=== PATIENT | female | born 1980 | race Caucasian/White ===

== ENCOUNTER → 2022-03-13 | Outpatient (CLI) | payer OTHER, MEDICAID, SELFPAY ==
[2022-03-13 12:17] LABS: Absolute Lymphocyte Count 2.02 X10^3/uL (0.83-4.51); Absolute Neutrophil Count 3.9 X10^3/uL (2.0-7.7); Basophil# 0.03 X10^3/uL; Basophil% 0.4 % (0-1); Eosinophil# 0.21 X10^3/uL; Eosinophils% 3.1 % (0-5); Hematocrit 40.6 % (37-47); Hemoglobin 12.3 g/dL (12.0-15.0); Lymphocyte # 2.02 X10^3/ul (0.83-4.51); Lymphocyte % 29.7 % (19-41); Mean Corp Hgb Conc 30.3 g/dL (32-36); Mean Corpuscular Volume 82.5 fL (81-99); Mean Platelet Vol. 9.3 fl (6.2-12.0); Monocyte# 0.61 X10^3/uL; NRBC Flagged by Analyzer 0 % (0-5); Neutrophil % 57.4 % (47-70); Platelet Count 386 K/mm3 (150-450); RBC Distribution Width CV 15.2 % (11.6-14.6); Red Blood Count 4.92 M/mm3 (4.2-5.4); White Blood Count 6.8 K/mm3 (4.4-11.0)
[2022-03-13 12:31] LABS: Vitamin D,25 Hydroxy 48.9 ng/mL
[2022-03-13 12:59] LABS: Anion Gap 5 (5-15); BUN 9 mg/dL (7-18); BUN/Creat Ratio 12.2 RATIO (10-20); Calcium,Total 9.4 mg/dL (8.5-10.1); Chloride 107 mmol/L (98-107); Cholesterol 129 mg/dL (200); Creatinine, Serum 0.74 mg/dL (0.55-1.02); EST Glomerular Filtration Rate 93 mL/min (>60); Est Glom Filt Rate - Afr Amer 113 mL/min (>60); Free T3 2.3 pg/mL (2.18-3.98); Glucose 84 mg/dL (74-106); High Density Lipoprotein 39 mg/dL; Iron 41 ug/dL (50-170); Iron Binding Capacity,Total 493 ug/dL (250-450); PERCENT IRON SATURATION 8.3 % (15.0-55.0); Potassium 4.7 mmol/L (3.5-5.1); Sodium Level 140 mmol/L (136-145); T4 Free Direct 0.88 ng/dL (0.76-1.46); Thyroid Stim Hormone (TSH) 1.31 uIU/mL (0.358-3.74); Triglycerides 54 mg/dL; Very Low Density Lipoprotein 11 mg/dL (5-40)
== END | disposition home or self-care (01) ==
PROVIDERS: PCP Family Medicine; Referring Provider Family Medicine; Visit Provider Family Medicine
DX: Z00.00 Encounter for general adult medical examination without abnormal findings (principal); E03.9 Hypothyroidism, unspecified; D64.9 Anemia, unspecified
CPT/HCPCS: 36415; 80048; 80061; 82306; 83540; 83550; 84439; 84443; 84481; 85025

== ENCOUNTER → 2022-09-10 | Outpatient (CLI) | payer OTHER, MEDICAID, SELFPAY ==
[2022-09-10 15:28] LABS: Absolute Lymphocyte Count 2.26 X10^3/uL (0.83-4.51); Absolute Neutrophil Count 4.5 X10^3/uL (2.0-7.7); Basophil# 0.01 X10^3/uL; Basophil% 0.1 % (0-1); Hematocrit 43.7 % (37-47); Lymphocyte # 2.26 X10^3/ul (0.83-4.51); Lymphocyte % 30.7 % (19-41); Mean Corpuscular Volume 90.7 fL (81-99); Mean Platelet Vol. 9.3 fl (6.2-12.0); Monocyte# 0.55 X10^3/uL; Monocyte% 7.5 % (0-10); NRBC Flagged by Analyzer 0 % (0-5); Neutrophil % 61.3 % (47-70); Platelet Count 338 K/mm3 (150-450); RBC Distribution Width CV 13.2 % (11.6-14.6); RBC Distribution Width SD 43.8 fl (35.1-43.9); Red Blood Count 4.82 M/mm3 (4.2-5.4); White Blood Count 7.4 K/mm3 (4.4-11.0)
[2022-09-10 15:55] LABS: Vitamin B12 735 pg/mL (211-911)
[2022-09-10 16:13] LABS: Ferritin 9 ng/mL (8-252); Free T3 2.1 pg/mL (2.18-3.98); T4 Free Direct 1.49 ng/dL (0.76-1.46); Thyroid Stim Hormone (TSH) 0.87 uIU/mL (0.358-3.74)
== END | disposition home or self-care (01) ==
LOC: MTLAB 13:56
PROVIDERS: Internal Medicine Endocrinology, Diabetes & Metabolism; PCP Family Medicine; Referring Provider Family Medicine; Visit Provider Family Medicine
DX: E03.9 Hypothyroidism, unspecified (principal); E11.9 Type 2 diabetes mellitus without complications; K90.9 Intestinal malabsorption, unspecified
CPT/HCPCS: 36415; 82607; 82728; 84439; 84443; 84481; 85025

== ENCOUNTER → 2023-04-06 | Outpatient (CLI) | payer OTHER, SELFPAY | END | disposition home or self-care (01) | PROVIDERS: PCP Family Medicine; Visit Provider Family Medicine | DX: N39.0 Urinary tract infection, site not specified (principal) | CPT/HCPCS: 87077; 87086; 87088; 87186 ==

== ENCOUNTER → 2023-07-12 | Outpatient (CLI) | payer OTHER, SELFPAY ==
--- NOTE | 2023-07-12 16:32 | US_ITS ---
STUDY: THYROID ULTRASOUND REASON FOR EXAM: Female, 43 years old. follow up ng TECHNIQUE: Ultrasound evaluation of the thyroid was performed with real-time and static swain-scale imaging. COMPARISON: None. FINDINGS: RIGHT LOBE: The right lobe of the thyroid gland measures 4.3 x 1.4 x 1.0 cm. There is a heterogeneous echotexture. Nodule 1:6 x 4 x 7 mm solid hypoechoic wider than tall smoothly marginated nodule with no echogenic foci (TR 4) in the inferior right lobe consistent with an adenoma. LEFT LOBE: The left lobe of the thyroid gland measures 3.9 x 1.4 x 0.9 cm. There is a heterogeneous echotexture. There are no demonstrated solid, cystic or complex lesions. ISTHMUS: The isthmus measures 2 mm thick . The regional lymph nodes are normal. US/Thyroid IMPRESSION: Thyroiditis with a small adenoma in the right lobe. Electronically Signed: Alejo Sheets MD at 22:34 EST ,
--- OUTSIDE RECORDS SUMMARY | 2023-07-12 16:52 | XMS RPT_ITS | CCD ---
Author Name Unknown Address [address] [place] [address] Organization [facility] Care Team Providers Care Drum Sander Name Role Phone BREANNA HINES Unavailable Unavailable SWETA CHAPMAN Unavailable Unavailable Breanna Hines Primary Care Provider DR BREANNA HINES DO Primary Care Physician Breanna Hines DO Primary Care Provider [phone] Breanna Hines DO Primary Care Provider Breanna Hines Primary Care Provider Breanna Hines Primary Care Provider LIZZIE ESPINOZA Attending Unavailable LIZZIE ESPINOZA Referring Unavailable BREANNA HINES Primary Care Unavailable LIZZIE ESPINOZA Attending Unavailable ALEXIS, LIZZIE Referring Unavailable BREANNA HINES Primary Care Unavailable BREANNA HINES Primary Care Unavailable LIZZIE ESPINOZA Attending Unavailable ALEXIS, LIZZIE Attending Unavailable ALEXIS, LIZZIE Referring Unavailable BREANNA HINES Primary Care Unavailable Breanna Hines Primary Care Provider Thomas Lamb MD Primary Care Provider FAHEEM VENEGAS-JEFFREY GORMAN Attending VAHID Lake MD Attending Unavail able UNKNOWN, PCP Primary Care Unavailable MD CASSIUS MALAGON Attending Adriana mitchell Unknown, Referring Provider Unavailable Rosalbav Thomas Broussard MD Primary Care Provider DIANDRA GRIFFITH Attending Unavailable THOMAS LAMB Primary Care Unavailable DIANDRA GRIFFITH Referring Unavailable DIANDRA GRIFFITH Attending Unavailable THOMAS LAMB Primary Care Unavailable Allergies Allergy Classification Reported Allergen(s) Allergy Type Date of Onset Reaction(s) Facility (20 sources) Albuterol; Translations: [ALBUTEROL] Drug Allergy 6 Rash [facility] Repository (20 sources) Ciprofloxacin; Translations: [CIPROFLOXACIN] Drug Allergy 7 Other (See Comments), Other: See Comments, Rash, Other [facility] [place], [place] Medications Current Medications Medication Drug Class(es) Dates Sig (Normalized) Sig (Original) atomoxetine 40 mg oral capsule (4 sources) Norepinephrine Reuptake Inhibitor Start: 10-30-2022 End: 10-30-2023 take 1 capsule by mouth once daily atomoxetine (Strattera) 40 MG capsule Take 1 capsule (40 mg) by mouth daily. Swallow capsule whole; do not open. If opened accidentally, do not touch eyes; wash hands immediately (product is an eye irritant). 30 capsule 0 10/30/2022 10/30/2023 Active azelastine hydrochloride 0.137 mg/actuat metered dose nasal spray (4 sources) Histamine-1 Receptor Antagonist Start: 12-04-2021 take 2 spray(s) nasal route twice daily azelastine (ASTELIN) 0.1 % nasal spray 2 sprays by Nasal route 2 times daily Use in each nostril as directed 120 mL 1 12/04/2021 Active Completed/Discontinued Medications Medication Drug Class(es) Dates Sig (Normalized) Sig (Original) amphetamine aspartate 2.5 mg / amphetamine sulfate 2.5 mg / dextroamphetamine saccharate 2.5 mg / dextroamphetamine sulfate 2.5 mg oral tablet (6 sources) Central Nervous System Stimulant Start: 02-06-2022 dextroamphetamin e-amphetamine (ADDERALL) 10 mg tablet Take 10 mg by mouth. 0 02/06/2022 Active Problems Active Problems Problem Classification Problem Date Documented Da te Episodic/Chronic Abdominal pain (2 sources) Upper abdominal pain; Translations: [Right upper quadrant pain] Episodic Anxiety disorders (20 sources) Generalized anxiety disorder; Translations: [Posttraumatic stress disorder] Onset: 10-10-2018 10-10-2018 Chronic Biliary tract disease (3 sources) Biliary calculus 08-08-2020 Episodic Headache; including migraine (19 sources) Migraine with aura; Translations: [Migraine with aura, not intractable, without status migrainosus] Onset: 02-04-2015 02-04-2015 Chronic Mood disorders (20 sources) Recurrent major depressive episodes, moderate ; Translations: [Major depressive disorder, recurrent, moderate] Onset: 10-10-2018 10-10-2018 Chronic Nutritional deficiencies (1 source) Vitamin D deficiency; Translations: [Vitamin D deficiency, unspecified] Chronic Other gastrointestinal disorders (10 sources) Irritable bowel syndrome; Translations: [Irritable bowel syndrome without diarrhea] Onset: 02-04-2015 02-04-2015 Chronic Other gastrointestinal disorders (10 sources) Intestinal malabsorption; Translations: [Intestinal malabsorption, unspecified] Onset: 12-30-2017 12-30-2017 Chronic Other gastrointestinal disorders (1 source) Dysphagia; Translations: [Dysphagia, unspecified type] Episodic Other gastrointestinal disorders (2 sources) History of bariatric surgical procedure; Translations: [Bariatric surgery status] Episodic Other infections; including parasitic (1 source) History of Helicobacter pylori infection; Translations: [Personal history of other infectious and parasitic diseases] Episodic Other non-traumatic joint disorders (1 source) Joint swelling; Translations: [Effusion, unspecified joint] Episodic Other nutritional; endocrine; and metabolic disorders (10 sources) Obesity; Translations: [Obesity, unspecified] Onset: 01-31-2015 01-31-2015 Chronic Other nutritional; endocrine; and metabolic disorders (7 sources) Body mass index 40+ - severely obese; Translations: [Body mass index (BMI) 40.0-44.9, adult] Onset: 12-29-2019 12-29-2019 Chronic Other nutritional; endocrine; and metabolic disorders (1 source) Weight gain; Translations: [Abnormal weight gain] Episodic Other and delivery including normal (1 source) 07-15-2021 Episodic Past or Other Problems Problem Classification Problem Date Documented Da te Episodic/Chronic Deficiency and other anemia (10 sources) Anemia; Translations: [Anemia, unspecified] Onset: 01-31-2015 01-31-2015 Episodic Diseases of mouth; excluding dental (1 source) Geographic tongue Onset: 12-09-2017 Episodic Nutritional deficiencies (10 sources) Deficiency of multiple nutrient elements; Translations: [Deficiency of multiple nutrient elements] Onset: 12-30-2017 12-30-2017 Episodic Other complications of (4 sources) Multigravida of advanced maternal age; Translations: [Supervision of elderly multigravida, unspecified trimester] Onset: 10-04-2020 04-22-2022 Episodic Results Test Name Value Interpretation Reference Range Facil ity Vital Signs Date Time Vital Sign Value Performing Clinician Delbert lity 10-30-2022 14:52-0400 Body height 165.1 cm Diandra Griffith APRN - ADAPTIVE PHYSICAL EDUCATION SPECIALIST Work Phone: [facility] 10-30-2022 14:52-0400 Body mass index (BMI) [Ratio] 35.78 kg/m2 Diandra Griffith CELL EFFICIENCY SUPERVISOR - ADAPTIVE PHYSICAL EDUCATION SPECIALIST Work Phone: [facility] 10-30-2022 14:52-0400 Body temperature 97.9 [degF] Diandra Griffith CELL EFFICIENCY SUPERVISOR - ADAPTIVE PHYSICAL EDUCATION SPECIALIST Work Phone: [facility] 10-30-2022 14:52-0400 Body weight 97.52 kg Diandra Griffith CELL EFFICIENCY SUPERVISOR - ADAPTIVE PHYSICAL EDUCATION SPECIALIST Work Phone: [facility] 10-30-2022 14:52-0400 Diastolic blood pressure 78 mm[Hg] Diandra Griffith APRN - ADAPTIVE PHYSICAL EDUCATION SPECIALIST Work Phone: [facility] 10-30-2022 14:52-0400 Heart rate 106 /min Diandra Griffith APRN - ADAPTIVE PHYSICAL EDUCATION SPECIALIST Work Phone: [facility] 10-30-2022 14:52-0400 Systolic blood pressure 104 mm[Hg] Diandra Griffith APRN - ADAPTIVE PHYSICAL EDUCATION SPECIALIST Work Phone: [facility] 07-15-2021 18:58-0500 Body temperature 98.96 [degF] JENNIE MI DO [facility] 07-15-2021 18:58-0500 Diastolic blood pressure 67 mm[Hg] JENNIE MI DO [facility] 07-15-2021 18:58-0500 Heart rate 62 /min JENNIE MI DO [facility] 07-15-2021 18:58-0500 Respiratory rate 18 /min JENNIE MI DO [facility] 07-15-2021 18:58-0500 Systolic blood pressure 106 mm[Hg] JENNIE MI DO [facility] Encounters Encounter Date Encounter Type Care Provider Facility Start: 01-29-2023 Refill Diandra Trever CELL EFFICIENCY SUPERVISOR - ADAPTIVE PHYSICAL EDUCATION SPECIALIST Work Phone: [facility] Start: 01-22-2023 Telephone encounter Diandra Emeli christiansen CELL EFFICIENCY SUPERVISOR - ADAPTIVE PHYSICAL EDUCATION SPECIALIST Work Phone: [facility] Procedures Date Procedure Procedure Detail Performing Clinician Start: 03-10-2022 Adult depression scr eening assessment Lizzie ARSHAD-C Work Phone: Start: 02-09-2022 Adult depression scr eening assessment Lizzie ARSHAD-C Work Phone: Start: 12-01-2021 Adult depression scr eening assessment Lizzie ARSHAD-C Work Phone: Start: 11-14-2021 Us abdominal real ti me w/image limited Siomara ARSHAD-C Work Phone: Start: 10-28-2021 Mri brain brain stem w/o contrast material Jovany Frank MD Work Phone: Start: 10-23-2021 C-reactive protein Chri yancy Hines DO Work Phone: Start: 10-23-2021 Comprehensive metabo lic panel Breanna Hines DO Work Phone: Start: 08-19-2020 Cholecystectomy JEFFREY MAYEN CELL EFFICIENCY SUPERVISOR-CNM Plan of Treatment Date Care Activity Detail Author Start: 10-27-2032 DTaP/Tdap/Td Vaccines (5 - Td or Tdap) DTaP/Tdap/Td Vaccines (5 - Td or Tdap) [facility] Start: 02-13-2032 Zoster Vaccines (1 of 2) Zoster Vaccines (1 of 2) [facility] Start: 01-03-2031 DTaP/Tdap/Td vaccine (4 - Td or Tdap) DTaP/Tdap/Td vaccine (4 - Td or Tdap) [facility] Start: 03-10-2023 Adult depression screening assessment DEPRESSION SCREENING [facility] Start: 02-26-2023 Influenza vaccination [facility] Start: 02-09-2023 Adult depression screening assessment DEPRESSION SCREENING [facility] Start: 02-03-2023 End: 02-03-2023 Patient encounter procedure [facility] Start: 12-09-2022 CHET, Provider: Elmira Johnson, Status: Pen, Time: 1:00 PM CHET, Provider: Elmira Johnson, Status: Pen, Time: 1:00 PM [id number] Specialty [facility] Work Phone: Start: 12-01-2022 Adult depression screening assessment DEPRESSION SCREENING [facility] Start: 11-25-2022 HIREN, Provider: Cassius Malagon, Status: Pen, Time: 10:30 AM HIREN, Provider: Cassius Malagon, Status: Pen, Time: 10:30 AM [id number] Specialty [facility] Work Phone: Start: 10-23-2022 Creatinine measurement Creatinine [facility] Start: 10-23-2022 Hemoglobin A1c measurement Diabetes: Hemoglobin A1C [facility] Start: 10-23-2022 Potassium [Moles/volume] in Serum or Plasma Potassium [facility] Start: 06-17-2022 End: 06-17-2022 Patient encounter procedure 06/17/2022 Office Visit Endocrinology Bertha Yarbrough MD [address] [facility] [address] [place] [address] Endocrinology [facility] Start: 02-26-2022 Influenza vaccination [facility] Start: 2022 Mammography MAMMOGRAM [facility] Start: 2022 Screening for malignant neoplasm of breast Mammogram [facility] Start: 01-22-2022 Hemoglobin A1c measurement Diabetes: Hemoglobin A1C [facility] Start: 01-19-2022 End: 01-19-2022 Patient encounter procedure 01/19/2022 Office Visit Otolaryngology Mt Chavez MD [address] [place] [address] [facility] Start: 12-04-2021 End: 12-04-2021 Patient encounter procedure 12/04/2021 Office Visit Otolaryngology Mt Chavez MD [address] [place] [address] [facility] Start: 11-03-2021 End: 11-03-2021 Patient encounter procedure 11/03/2021 Office Visit Neurology Diandra Griffith, CELL EFFICIENCY SUPERVISOR - ADAPTIVE PHYSICAL EDUCATION SPECIALIST [address] [place] [address] [facility] [place] Start: 10-28-2021 End: 10-28-2021 Patient encounter procedure 10/28/2021 Appointment MRI [facility] Start: 10-27-2021 End: 10-27-2021 Patient encounter procedure 10/27/2021 Office Visit General Surgery Clem Aleman MD [address] [place], [place] [id number] Gen Surg - [facility] Start: 06-28-2021 DEPRESSION ASSESSMENT DEPRESSION ASSESSMENT [facility] Start: 04-01-2021 COVID-19 Vaccine (3 - Booster for Pfizer series) COVID-19 Vaccine (3 - Booster for Pfizer series) [facility] Start: 12-25-2020 COVID-19 VACCINE (3 - Booster for Pfizer series) COVID-19 VACCINE (3 - Booster for Pfizer series) [facility] Start: 02-02-2020 Creatinine monitoring Creatinine monitoring [facility] [place] , [place] Start: 02-02-2020 Potassium monitoring Potassium monitoring [facility], [place] Start: 10-25-2019 End: 10-25-2019 Office Visit 10/25/2019 Office Visit Endocrinology Billie Adams MD [address] [place] [address] [phone] [facility] [place] Start: 05-17-2019 End: 05-17-2019 Office Visit 05/17/2019 Office Visit General Surgery Cat Poe MD [address] [place] [address] [phone] [facility] Start: 04-21-2019 End: 04-21-2019 Office Visit 04/21/2019 Office Visit Endocrinology Billie Adams MD [address] [facility] [place] [address] [phone] [facility] [place] Start: 04-13-2019 End: 04-13-2019 Office Visit 04/13/2019 Office Visit Weight Management Rose Schaefer MD [address] [place] [address] [phone] [facility] Start: 04-10-2019 End: 04-10-2019 Appointment 04/10/2019 Appointment Radiology [facility] Start: 03-13-2019 End: 03-13-2019 Office Visit 03/13/2019 Office Visit Family Medicine Breanna Hines, DO [address] [place], [place] [id number] [facility] Start: 02-26-2019 Influenza vaccination Flu vaccine (#1) [place], [place] Start: 12-27-2015 Cervical cancer screen Cervical cancer screen [place], [place] Start: 02-13-2012 HPV TESTING HPV TESTING [facility] Start: 02-13-2012 Screening for malignant neoplasm of cervix [facility] Start: 2003 PAP TESTING PAP TESTING [facility] Start: 2003 Screening for malignant neoplasm of cervix Pap smear [facility] Start: 2001 DTaP/Tdap/Td vaccine (1 - Tdap) DTaP/Tdap/Td vaccine (1 - Tdap) [place] Start: 2001 Urine microalbumin profile DTAP,TDAP,TD (1 - Tdap) [facility] Start: 2001 Urine screening for protein Diabetes: Urine Protein Screening [facility] Start: 02-13-2000 HEPATITIS C SCREENING HEPATITIS C SCREENING [facility] Start: 02-13-2000 Hepatitis C screening Hepatitis C Screening [facility] Start: 02-13-2000 HIV SCREENING HIV SCREENING [facility] Start: 1997 HIV screen HIV screen [place], [place] Start: 1997 HIV screening HIV screen [facility] Start: 1994 Adult depression screening assessment DEPRESSION SCREENING [facility] Start: 1994 Depression Monitoring Depression Monitoring [facility] Start: 1994 Depresssion Monitoring Depresssion Monitoring [facility] Start: 02-13-1992 Diabetic foot examination Diabetes: Foot Exam [facility] Start: 02-13-1992 Glaucoma screening Diabetes: Retinopathy Screening [facility] Start: 02-13-1992 Preventive dental service Diabetes: Dental Exam [facility] Start: 1983 MMR Vaccines (1 of 1 - Standard series) MMR Vaccines (1 of 1 - Standard series) [facility] Start: 1983 Varicella vaccination Varicella Vaccines (1 of 2 - 2-dose childhood series) [facility] Start: 1982 HEPATITIS B (1 of 3 - 3-dose series) HEPATITIS B (1 of 3 - 3-dose series) [facility] Start: 1982 Hepatitis B Vaccines (1 of 3 - 3-dose series) Hepatitis B Vaccines (1 of 3 - 3-dose series) [facility] Start: 1982 HIV screening HIV Screening [facility] Start: 1982 Lipid panel Lipid Panel [facility] Start: 1982 Thyroid stimulating hormone measurement TSH Level [facility] End: 12-16-2021 CT Sinus WO Contrast Limited [facility] Work Phone: Immunizations Immunization Date Immunization Notes Care Provider Fa cili 01-03-2021 tetanus toxoid, redu benji diphtheria toxoid, and acellular pertussis vaccine, adsorbed; Translations: [Boostrix (Tdap)] JEFFREY MAYEN CELL EFFICIENCY SUPERVISOR-CNM [facility] 10-30-2020 Pfizer SARS-CoV-2 Vaccination Diandra Griffith CELL EFFICIENCY SUPERVISOR - ADAPTIVE PHYSICAL EDUCATION SPECIALIST Work Phone: [facility] 10-09-2020 Pfizer SARS-CoV-2 Vaccination Diandra Griffith CELL EFFICIENCY SUPERVISOR - ADAPTIVE PHYSICAL EDUCATION SPECIALIST Work Phone: [facility] 04-10-2020 tetanus and diphther ia toxoids, adsorbed, preservative free, for adult use (2 Lf of tetanus toxoid and 2 Lf of diphtheria toxoid) Breanna Hines DO Work Phone: [facility] Work Phone: 05-10-2019 influenza virus vaccine, unspecified formulation Breanna Hines DO Work Phone: [facility] 07-15-2016 diphtheria, tetanus toxoids and acellular pertussis vaccine, 5 pertussis antigens Breanna Hines DO Work Phone: [facility] Work Phone: 06-23-2016 influenza, injectabl e, quadrivalent, contains preservative Siomara [place] Payers Date Payer Category Payer Private Health Insurance [id number] 2022 Unknown [id number] 2021 Private Health Insurance [id number] 2021 Private Health Insurance CIGNA CIGNA OAP [id number] 2021-Present [phone] [address] [place] [address] Open Access [id number] 2021 Private Health Insurance [id number] 2021 Medicaid [employer] MEDICA[employer] [facility] MEDICAID [id number] 2021-Present [phone] [address] [place] [address] Medicaid [id number] 2021 Medicaid [id number] 2020 Medicaid [id number] 2018 Unknown [employer] M [employer] [address] xxxxxxxxxxxx 2018-Present [phone] [address] [place] [address] xxxxxxxxxxxx [id number] 1982 Unknown [id number] 1982 Unknown [id number] 1982 Unknown [id number] 1982 Unknown [id number] Private Health Insurance [id number] Unknown [id number] Unknown [employer] Social History Date Type Detail Facility Start: 07-02-2017 End: 02-23-2019 Tobacco smoking status NHIS Never smoker [place] Start: 02-23-2019 End: 10-30-2022 Alcohol intake Yes [place] Start: 10-10-2018 History SDOH Physica l Activity DPW 0 [place] Start: 10-10-2018 History SDOH Transpo rt Med 2 [place] Start: 01-31-2015 End: 12-08-2017 Alcohol Comment socially [place] Start: 1982 Sex Assigned At Not on file [place], [place] Start: 1982 Sex Assigned At Female A [facility] Start: 01-01-2015 End: 07-02-2017 Tobacco use and exposure Smokeless tobacco non-user [facility] Work Phone: Start: 10-08-2021 End: 10-30-2022 Alcohol intake Current drinker of alcohol (finding) [facility] Work Phone: Start: 10-08-2021 End: 10-30-2022 Alcohol intake [facility] Work Phone: Start: 09-28-2021 End: 10-30-2022 Exposure to SARS-CoV-2 (event) Not sure [facility] Start: 11-03-2021 End: 04-23-2022 Alcohol intake Ex-drinker (finding) [facility] Start: 10-26-2021 End: 11-05-2021 Exposure to SARS-CoV-2 (event) Unable to assess [facility] Work Phone: Start: 04-16-2022 Gender identity Identifies as female gender (finding) [facility] Start: 04-16-2022 Sexual orientation Bisexual (finding ) [facility] Goals Date Patient Goal Desired Activity /State Clinical Notes 04-10-2020 to 02-01-2023 Telephone Encounter - RUBI Sagastume CNP - 02/01/2023 8:12 AM EDTTelephone Encounter - RUBI Sagastume CNP - 02/01/2023 8:12 AM DASHTGabi Del Real RN - 10/30/2022 2:30 PM EDT Note Date & Type Note Facility 02-01-2023 Telephone encounter Note Requested Prescriptions Signed Prescriptions Disp Refills Rimegepant Sulfate (Nurtec) 75 MG tablet dispersible 8 tablet 5 Sig: TAKE 75 MG BY MOUTH ONCE DAILY NEEDED (MIGRAINE) Authorizing Provider: DIANDRA GRIFFITH erenumab (Aimovig) 140 MG/ML injection 1 mL 5 Sig: INJECT 140 MG INTO THE SKIN EVERY 30 DAYS Authorizing Provider: DIANDRA GRIFFITH [facility] 02-01-2023 Miscellaneous Notes Requested Prescriptions Signed Prescriptions Disp Refills Rimegepant Sulfate (Nurtec) 75 MG tablet dispersible 8 tablet 5 Sig: TAKE 75 MG BY MOUTH ONCE DAILY NEEDED (MIGRAINE) Authorizing Provider: DIANDRA GRIFFITH erenumab (Aimovig) 140 MG/ML injection 1 mL 5 Sig: INJECT 140 MG INTO THE SKIN EVERY 30 DAYS Authorizing Provider: DIANDRA GRIFFITH documented in this encounter [facility] 01-22-2023 Telephone encounter Note Noted. [facility] 01-22-2023 Miscellaneous Notes Noted. Images from the original note were not included. The patient has upcoming Botox appt on 02/03/2023. The Botox is approved under the patient's Medical Benefit and should be done as Buy and Bill. See Media tab for Approval letter. BOTOX IS BUY AND BILL!!! Medication: Botox # of Unit to be Administered: 200 Prior Authorization: Approved (medical benefit) [place] reference #: [id number] Approval dates: 02/03/2023 - 02/04/2024 Number of Units Approved: 800 documented in this encounter [facility] 01-22-2023 Telephone encounter Note Images from the original note were not included. The patient has upcoming Botox appt on 02/03/2023. The Botox is approved under the patient's Medical Benefit and should be done as Buy and Bill. See Media tab for Approval letter. BOTOX IS BUY AND BILL!!! Medication: Botox # of Unit to be Administered: 200 Prior Authorization: Approved (medical benefit) [place] reference #: [id number] Approval dates: 02/03/2023 - 02/04/2024 Number of Units Approved: 800 [facility] 12-09-2022 Chief complaint Narrative - Reported An interactive audio and video telecommunication system which permits real time communications between the patient (at the originating site) and provider (at the distant site) was utilized to provide this telehealth service.Verbal consent was requested and obtained from ELINA LOWERY on this date, 12/09/2022 01:00 PM , for a telehealth visit.obesitynutrition follow-up pre-op [facility] Work Phone: 11-04-2022 Chief complaint Narrative - Reported An interactive audio and video telecommunication system which permits real time communications between the patient (at the originating site) and provider (at the distant site) was utilized to provide this telehealth service.Verbal consent was requested and obtained from ELINA LOWERY on this date, 11/04/2022 09:00 AM , for a telehealth visit.obesityinitial nutrition evaluation [facility] Work Phone: 11-04-2022 Note Chief Complaint An interactive audio and video telecommunication system which permits real time communications between the patient (at the originating site) and provider (at the distant site) was utilized to provide this telehealth service. Verbal consent was requested and obtained from ELINA LOWERY on this date, 11/04/2022 09:00 AM , for a telehealth visit. obesity initial nutrition evaluation Provider Impressions Surgeon: Manas Patient is considering: revision surgery/gastric bypass ASSESSMENT: Current weight in pounds: 218.0 Ht: 64 in BMI: 37.2 Initial start weight in pounds: 218.0 Pre-Op Excess Body Weight (EBW) in pounds: 73.0 Target Post-Op weight goal in pounds: 159.6 -174.2 Food allergies/intolerances: no Chewing/Swallowing/Dentition: no Nausea / Vomiting / Hx Gastroparesis: acid reflux Diarrhea/ Constipation: no Exercise level: cardio and resistance 3x/wk for 45 min. Smoking/Tobacco use: no Vitamins/Minerals supplements: 2 [place] MVI, B12 and iron Medications: see list Past diet attempts: WW, Lenore, low carb, had gastric bypass 14 years ago at [facility] Hours of sleep/night: 6-7 24 HOUR RECALL/DIET HISTORY: Breakfast: skipped Snack: banana Lunch: beef angely with cheese no bun, mustard and pickles Snack: cashews Dinner: white rice with broccoli and cheese Snack: no Beverages: water, unsweetened tea, coffee with cream, diet pop Alcohol: no Person responsible for cooking AND shopping? self How often do you eat sweet snacks? 3x/wk How often do you eat savory snacks? daily How often do you eat out? 1-2x/wk Do you feel overly stuffed? oc,casionally Binge Eating? no Night Eating? no Emotional Eating? yes, stress and emotional eating (working with a therapist) READINESS TO LEARN: Motivation to learn: Interested Understanding of instruction: Good Anticipated Compliance: Good Family Support: spouse Educational Materials Provided: Pre-op Diet and sample menus Nutrition Guidelines for Gastric Bypass Schedules for MSWL class and support group Calorie meal plan Goals sheet This appt was conducted via phone d/t COVID 19 precautions. Nutrition assessment completed today. Patient will schedule for video education class on to discuss the 2 week pre-op diet, post-op protein and fluid goals, vitamin and mineral supplementation, exercise goals, and post-op diet progression at later date. Patient is seeking revision surgery/gastric bypass Her weight has been a struggle since childhood. Has a history of PCOS and type 2 diabetes. Considers stress eating and carbs her dietary obstacles. She has tried numerous weight loss approaches and has had limited success. She had gastric bypass surgery about 14 years ago at [facility] and starting gaining some weight back. Lost over 45 pounds since starting on [facility] 7 months ago. Goal for surgery is to lower weight and improve stomach comfort as well as for overall health. Instructed patient on a 1400 calorie meal plan and to measure and record intake daily. Advised patient to start following meal plan and eat 3 meals daily. Reviewed post-op behaviors to start practicing. Set goal to exercise for 30 minutes 3 times weekly and a increase to 60 minutes 5 times weekly. Recommend that patient follow up in 1 month to assess progress. Patient was receptive to nutritional recommendations, asked numerous questions, and verbalized understanding of the weight loss surgery diet. Patient expressed understanding about the importance of strict dietary compliance post-surgery to avoid nutritional deficiencies and achieve optimal weight loss and verbalized intent to follow dietary recommendations. Malnutrition Screening: Significant unintentional weight loss? n/a Eating less than 75% of usual intake for more than 2 weeks? n/a Nutrition Diagnosis: 1. Overweight/obesity related to excess energy intake as evidenced by BMI = 40 kg/m2. 2. Food- and nutrition-related knowledge deficit related to lack of prior exposure to surgical weight loss information as evidenced by pt new to surgical program. Nutrition Interventions: 1. Modify type and amount of food and nutrients within meals and snacks. 2. Comprehensive Nutrition Education Recommendations: 1. Begin following your meal plan. Measure and record intake daily. 2. Structure meal patterns, eating three meals and 1-2 snacks per day. 3. Have a good source of protein at every meal AND snack. Aim for 60-70 grams/day. 4. Drink 64 oz of calorie-free, caffeine-free, and non-carbonated beverages. 5. Practice no drinking 30 minutes before meals, nothing with meals and wait 30 minutes after meals to drink again. Make meals last 30 minutes-chew thoroughly. 6. Limit or omit eating out/sweets/savory snacks to 1-2 times per week. 7. Begin daily multivitamin. [employer] Complete has everything you need. 8. Increase physical activity by 10-15 minutes as tolerated to an end goal of 60 minutes 5 x per week. Consiste (more content not included)... [facility] 10-30-2022 Note DEPARTMENT OF NEUROL OGY BOTOX PROCEDURE NOTE FOR HEADACHE Date: 10/30/22 Patient: Elina Lowery : 1980 Diagnosis: Diagnosis Plan 1. Intractable chronic migraine without aura and without status migrainosus onabotulinumtoxinA (Botox) injection 155 Units Procedure: Botox injections into the scalp and posterior cervical muscles. Prior to procedure risks, benefits, alternatives, and potential side effects were reviewed with patient. Specifically reviewed possible risk of temporary muscle weakness. All questions were answered, patient expressed understanding, verbal consent given for procedure. No numbing spray applied/removed. Botox was injected with the parameters below: With the patient in sitting position, she received Botox injections in the neck and skull muscles. Patient receive the following doses: 1. R Frontalis 10 units 2. L Frontalis 10 units 3. R Sap Hana Developer 10 units 4. L Sap Hana Developer 10 units 5. R Temporalis 10 units 6. L Temporalis 10 units 7. R Occipitalis 10 units 8. L Occipitalis 10 units 9. R Trapezious 22.5 units 10.L Trapezious 22.5 units 11. R Masseter 15 units 12. L Masseter 15 units Total units injected 155 units. Units discarded 45 units. Comments: The patient reports improvement in migraine frequency and severity of at least 70% following Botox injections. The patient states previously having at least 20 migraine days a month. She states she has been seeing a chiropractor to help with her symptoms. The patient also reports TMJ pain today as well. Discussed Botox in the masseter muscles which the patient was open to receiving again today as she felt it was helpful after receiving it during her last visit. The patient states she does not feel vyvanse is working well for her ability to focus. The patient is requesting to try straterra in place of vyvanse. Orders sent to the pharmacy as requested. Patient advised to notify the office if she feels it is effective in order to receive refills. [x] Pt tolerated procedure well. Pt advised to avoid exercise or strenuous physical activity for 24 hours. Post treatment expectations reviewed in detail. RUBI Sagastume CNP 10/30/22 [facility] 10-30-2022 History of Present illness Narrative Administrations This Visit onabotulinumtoxin A (BOTOX) injection 200 Units Admin Date 10/30/2022 Action Given Dose 200 Units Route IntraMUSCular Site Other Administered By Diandra Griffith CNP Ordering Provider: Diandra Griffith CNP ND:[id number] Lot#: [id number] Relay Record Clerk: Allergan Patient Supplied?: No DEPARTMENT OF NEUROLOGY BOTOX PROCEDURE NOTE FOR HEADACHE Date: 10/30/22 Patient: Elina Lowery : 1980 Diagnosis: Diagnosis Plan 1. Intractable chronic migraine without aura and without status migrainosus onabotulinumtoxinA (Botox) injection 155 Units Procedure: Botox injections into the scalp and posterior cervical muscles. Prior to procedure risks, benefits, alternatives, and potential side effects were reviewed with patient. Specifically reviewed possible risk of temporary muscle weakness. All questions were answered, patient expressed understanding, verbal consent given for procedure. No numbing spray applied/removed. Botox was injected with the parameters below: With the patient in sitting position, she received Botox injections in the neck and skull muscles. Patient receive the following doses: 1. R Frontalis 10 units 2. L Frontalis 10 units 3. R Sap Hana Developer 10 units 4. L Sap Hana Developer 10 units 5. R Temporalis 10 units 6. L Temporalis 10 units 7. R Occipitalis 10 units 8. L Occipitalis 10 units 9. R Trapezious 22.5 units 10.L Trapezious 22.5 units 11. R Masseter 15 units 12. L Masseter 15 units Total units injected 155 units. Units discarded 45 units. Comments: The patient reports improvement in migraine frequency and severity of at least 70% following Botox injections. The patient states previously having at least 20 migraine days a month. She states she has been seeing a chiropractor to help with her symptoms. The patient also reports TMJ pain today as well. Discussed Botox in the masseter muscles which the patient was open to receiving again today as she felt it was helpful after receiving it during her last visit. The patient states she does not feel vyvanse is working well for her ability to focus. The patient is requesting to try straterra in place of vyvanse. Orders sent to the pharmacy as requested. Patient advised to notify the office if she feels it is effective in order to receive refills. [x] Pt tolerated procedure well. Pt advised to avoid exercise or strenuous physical activity for 24 hours. Post treatment expectations reviewed in detail. RUBI Sagastume CNP 10/30/22 documented in this encounter [facility] 07-22-2022 Note DEPARTMENT OF NEUROL OGY BOTOX PROCEDURE NOTE FOR HEADACHE Date: 07/22/22 Patient: Elina Lowery : 1980 Diagnosis: Diagnosis Plan 1. Intractable chronic migraine without aura and without status migrainosus Procedure: Botox injections into the scalp and posterior cervical muscles. Prior to procedure risks, benefits, alternatives, and potential side effects were reviewed with patient. Specifically reviewed possible risk of temporary muscle weakness. All questions were answered, patient expressed understanding, verbal consent given for procedure. No numbing spray applied/removed. Botox was injected with the parameters below: With the patient in sitting position, she received Botox injections in the neck and skull muscles. Patient receive the following doses: 1. R Frontalis 10 units 2. L Frontalis 10 units 3. R Sap Hana Developer 10 units 4. L Sap Hana Developer 10 units 5. R Temporalis 15 units 6. L Temporalis 15 units 7. R Occipitalis 10 units 8. L Occipitalis 10 units 9. R Trapezious 22.5 units 10.L Trapezious 22.5 units 11. R Masseter 10 units 12. L Masseter 10 units Total units injected 155 units. Units discarded 45 units. Comments: The patient reports improvement in migraine frequency and severity of at least 70% following Botox injections. The patient states previously having at least 20 migraine days a month. The patient reports an increase in headaches over the last month. She states stress is increased and she is late on Botox. She states she has been seeing a chiropractor to help with her symptoms. The patient also reports TMJ pain today as well. Discussed Botox in the masseter muscles which the patient was open to trying. The patient states she has had COVID twice. She states since COVID she has Phantom smells of cigarette smoke. The patient states it is improved with Aimovig use. She states the phantom smells occur mainly in the evening. The patient states recently the phantom smells have increased. The patient is having more migraine pain which may be causing the symptoms. Discussed changing from Aimovig to Ajovy which the patient was open to trying. The patient states she was prescribed Mounjaro for blood sugar control. She states since starting this medication she does not feel Adderall is as effective in controlling ADHD. The patient states PCP advised her that Mounjaro can sometimes make Adderall less effective. The patient is requesting a prescription for Vyvanse. Prescription for vyvanse 40 mg daily provided in place of Adderall. [x] Pt tolerated procedure well. Pt advised to avoid exercise or strenuous physical activity for 24 hours. Post treatment expectations reviewed in detail. Diandra Griffith APRN - NAKUL 07/22/22 [facility] 04-23-2022 Note HNO ID: [id number] Author: Lizzie Espinoza PA-C Service: ? Author Type: Physician Accuracy Expert Type: Progress Notes Filed: 04/23/2022 4:57 PM Note Text: [facility] PROGRESS NOTE PATIENT: Elina Lowery MRD: [id number] DATE: April 23, 2022 IDENTIFYING INFORMATION: Elina is a 41 year old female with a history of anxiety, depression, PTSD and ADHD who presents for follow-up. Previous notes/chart have been reviewed. Virtual platform used: [employer]. This Visit is being conducted with the use of a HIPPA compliant telecommunication system permitting interactive audio and or video platform. Proper identity, and was established. Verbal consent to engage in and treat was obtained. It required patient-provider interaction for the medical decision making as documented below. CHIEF COMPLAINT: I have been really anxious Interim History: The patient reached out to this provider on 04/02 and requested to increased her Effexor as she had been on the 37.5 mg for about 6 weeks. Effexor XR was adjusted to 75 mg daily and the patient states she started this approximately 3 weeks ago. The patient states her anxiety has been bad and she has been really stressed . Reports her anxiety can come present as anger and irritability. Reports she is dealing with stressors from her mom, and with her children. Reports she cleaned out her mom's house and this caused a lot of stress, anxiety and nightmares. Reports she clenches her jaw more when feeling anxious and this has lead to more TMJ issues and MURPHY. Reports she was in so much pain due to her TMJ that she was in tears. Reports her depression seems okay but notes her MURPHY increase when she is more depressed. Reports she is more focused on her anxiety than her depression. Reports she is taking Adderall 10 mg once daily. Reports her neurologist increased her prescription to BID. Reports she does not take it on days where she is feeling more irritable and anxious as she feels it makes it worse. Reports she does feel it is more difficult to focus when she is more anxious. Reports she would like to maybe try an extended release stimulant but cannot break down capsules and therefore thinks she might need to switch to Vyvanse due to being able to open up the capsule. SUBJECTIVE: Depression: Reports she has been more focused on her anxiety than her depression. Reports sleep disturbance, irritability, low energy, and appetite changes. Anxiety is reported as increased. Reports feeling more anxious, on-edge, irritable, trouble concentrating and restlessness. Reports no panic attacks. Sleep is reported as trash . Reports she has had nightmares about 3 nights this week. Reports she stays up later to have alone time and then her daughter wakes up when she is ready for bed. Reports she is trying to find time for herself earlier in the day. Reports sleeping about 5.5-6 hours per night. Appetite is reported as okay . Reports she has had a lower appetite this past month. Reports a history of emotional overeating but she feels this has tapered off . Racing thoughts: Reports continued racing thoughts. Mood swings: Reports irritability/anger when feeling anxious. Future oriented thinking: (+) Discusses future goals and plans. SI/SH/HI:Denies SI, SH or HI. Denies hallucinations, delusions, and paranoia. Medication side effects: Reports decreased appetite. Compliant with medication regiment. Current Outpatient Medications Medication Sig Dispense Refill busPIRone (BUSPAR) 5 mg tablet Take 1 tablet by mouth twice daily. 60 tablet 0 venlafaxine ER (EFFEXOR XR) 150 mg 24 hr capsule Take 1 capsule by mouth once daily. 30 capsule 0 dextroamphetamine-amphetamine (ADDERALL) 10 mg tablet Take 10 mg by mouth. ferrous sulfate 325 mg (65 mg iron) EC tablet Take 1 tablet by mouth twice daily. ondansetron (ZOFRAN) 4 mg tablet Take by mouth. TAKE 1 TABLET BY MOUTH EVERY 8 HOURS NEEDED FOR NAUSEA (Patient not taking: Reported on 11/03/2021 ) senna-docusate (SENNA-S) 8.6-50 mg per tablet Take 2 tablets by mouth. BD LUER-OLINDA SYRINGE 3 mL 25 x 1 1/2 as directed. ARMOUR THYROID 90 mg topiramate (TOPAMAX) 50 mg tablet Take 50 mg by mouth twice daily. metFORMIN ER (GLUCOPHAGE XR) 750 mg 24 hr tablet polyethylene glycol 3350 (MIRALAX) 17 gram/dose powder Take 17 g by mouth once daily. Dissolve dose in 4 - 8 ounces of liquid and take as directed. [address] (PROTONIX) 40 mg tablet Take 1 tablet by mouth once daily. 30 tablet 2 fluticasone propionate (FLONASE NASAL) Use in the nose. cyanocobalamin 1,000 mcg/mL soln ergocalciferol, vitamin D2, (DRISDOL) 50,000 unit capsule metFORMIN (GLUCOPHAGE) 500 mg tablet No current facility-administered medications for this visit. No significant changes reported in medical history. Past Family and Social History Reviewed. Substance Use H (more content not included)... [facility] 04-23-2022 Instructions Lizzie Espinoza PA-C - 04/23/2022 4:45 PM EDT Images from the original note were not included. Attention Deficit Hyperactivity Disorder (ADHD) in Adults How is ADHD in adults diagnosed? It is not easy for a doctor to diagnose adult attention deficit/hyperactivity disorder (ADHD). Sometimes, an adult will recognize the symptoms of ADHD in himself or herself when a son or daughter is diagnosed. Other times, adults will seek professional help for themselves and find that their depression or anxiety is related to ADHD. In order to be diagnosed with ADHD, an adult must have childhood-onset and persistent, current symptoms. For an accurate diagnosis, the following are recommended: A history of the adult's behavior as a child An interview with the adult's life partner, parent, close friend, or other close associate A physical examination Psychological tests What are symptoms related to adult ADHD? ADHD symptoms continue as problems into adulthood for more than 60 percent of children with ADHD. The following behaviors and problems might stem directly from ADHD, or might be the result of related adjustment difficulties: Chronic lateness and forgetfulness Anxiety Lack of organizational skills Low self-esteem Employment problems Difficulty controlling anger Impulsiveness If these difficulties are not managed appropriately, they can cause emotional, social, occupational, and academic problems in adults. What are types of behavioral treatments for adult ADHD? Adult ADHD might be treated with one or more of the following: Individual cognitive and behavioral therapy to enhance self-esteem Relaxation training and stress management to reduce anxiety and stress Behavioral coaching to teach the person strategies for organizing home and work activities medical review coordinator or mentoring to support better working relationships and improve on-the-job performance Family education and therapy What strategies can help an adult with ADHD succeed in the workplace? Some adults with ADHD have benefited from: Time-management training; Relaxation and stress management training; Occupational therapy to teach strategies for organizing home and work activities; and, medical review coordinator or mentoring to support better working relationships and improve on-the-job performance. What strategies can parents with ADHD use to resolve conflicts with ADHD children? Be aware. Accept the fact that you are angry, frustrated, and fearful. So is your teen--although his bravado may hide it. You can't help your child through tough times if you can't control your emotions. If you can't, seek the help of a doctor or therapist. Be honest and positive. Admit to your child that having ADHD is not easy, that it takes a lot of effort to stay on track. Tell him/her about some of the challenges you have faced, and the ways you have succeeded. Use humor to deflect anxiety. Always reinforce your child's strengths. Practice healthy confrontation. If you are about to lose your temper, use these techniques: Avoid accusation --focus on solutions to the problem and teach your teen to find alternatives that work. Focus on the behavior --make it clear that your son is not the sum of his behaviors, and that he, within reason, can control them. If you or your child starts to shout, break the pattern by speaking softly. Stick to your word. It isn't easy for people with ADHD to remain disciplined enough to mete out consequences. Make this a priority. If you told your son he must be home by 10 or he will lose his car privileges, and he comes home at 11, don't get angry. Take away his car privileges. This may be inconvenient--you may have to drive him to his tutoring sessions--but do it anyway. If you don't, your son will miss out on learning to equate his actions with consequences and on seeing that a person with ADHD can demonstrate responsible behavior. Avoid the guilt trap. You may have challenges like those of your son, but he is his own person. ADD is an explanation of behaviors, not an excuse for them. Your own failures don't mean you shouldn't have reasonable expectations for him. Humor them a little. Parents who have a sense of humor during tense, stressful situations may make their teen feel more accepted, less anxious, and better able to regulate his emotions, say researchers. Accept your imperfections. It is difficult enough to deal with your own ADHD, let alone your teen's. Don't let the perception that you've failed as a parent, because of your son's challenges, affect your interactions with him. You are a role model for your son, imperfections and all. References National [place] of Mental Health. Can Adults Have ADHD? www.nimh.nih.gov Accessed 09/11/2011 Children and Adults with Attention Deficit/Hyperactivity Disorder. Coaching for Adults with ADHD www.efah5rwsa.org Accessed 09/11/2011 [place] [employer]. August 2011 Monitor on Psychology: Bringing life into focus www.apa.org Accessed 09/11/2011 Copyright 0903-6331 [facility]. All rights reserved This information is provided by the [facility] and is not intended to replace the medical advice of your doctor or health care provider. Please consult your health care provider for advice about a specific medical condition. For additional health information, please contact the Center for Consumer Health Information at the [facility] or toll-free extension [phone]. If you prefer, you may visit [email or web address] or [email or web address]. This document was last reviewed on: 2011 index#5197 An Overview of Anxiety Disorders What is an anxiety disorder? Anxiety is a normal human emotion. Many people feel anxious, or nervous, when faced with a problem at work, or before taking a test or making an important decision. Anxiety disorders, however, are different. They can cause such distress that it interferes with a person's ability to lead a normal life. An anxiety disorder is a serious mental illness. People with anxiety disorders respond to certain things or situations with fear and dread, as well as physical signs of anxiety such as a pounding heart and sweating. For people with anxiety disorders, worry and fear are constant and overwhelming, and can be crippling. An anxiety disorder is diagnosed if the person's response is not appropriate for the situation, if the person cannot control the response or if the anxiety interferes with normal functioning. Anxiety disorders can get worse if not treated; however, effective treatments are available. What are the types of anxiety disorders? There are several recognized anxiety disorders, including the following: Panic disorder People with this disorder have feelings of terror that strike suddenly and repeatedly with no warning. Other symptoms of a panic attack include sweating, chest pain, palpitations (unpleasant sensations of irregular heartbeats) and a feeling of choking, which might make the person feel like he or she is having a heart attack or going crazy. Obsessive-compulsive disorder (OCD) People with OCD are plagued by constant thoughts or fears that cause them to perform certain rituals or routines. The disturbing thoughts are called obsessions, and the rituals are called compulsions. An example is a person with an unreasonable fear of germs who constantly washes his or her hands. Post-traumatic stress disorder (PTSD) PTSD is a condition that can develop following a traumatic and/or terrifying event, such as a sexual or physical assault, the unexpected of a loved one, or a natural disaster. People with PTSD often have lasting and frightening thoughts and memories of the event, and tend to be emotionally numb. Social anxiety disorder Also called social phobia, social anxiety disorder involves overwhelming worry and self-consciousness about everyday social situations. The worry often centers on a fear of being judged by others, or behaving in a way that might cause embarrassment or lead to ridicule. Specific phobias A specific phobia is an intense fear of a specific object or situation, such as snakes, heights or flying. The level of fear usually is inappropriate to the situation and might cause the person to avoid common, everyday situations. Generalized anxiety disorder This disorder involves excessive, unrealistic worry and tension, even if there is little or nothing to provoke the anxiety. What are the symptoms of an anxiety disorder? Symptoms vary depending on the type of anxiety disorder, but general symptoms of anxiety include: Feelings of panic, fear and uneasiness Uncontrollable, obsessive thoughts Repeated thoughts or flashbacks of traumatic experiences Nightmares Ritualistic behaviors, such as repeated hand washing Problems sleeping Cold or sweaty hands Shortness of breath Palpitations An inability to be still and calm Dry mouth Numbness or tingling in the hands or feet Nausea Muscle tension What causes anxiety disorders? The exact cause of anxiety disorders is not known; but anxiety disorders--like other forms of mental illness--are not the result of personal weakness, a character flaw or poor upbringing. As scientists continue their research on mental illness, it is becoming clear that many of these disorders are caused by a combination of factors, including biology and environmental stresses. Like certain illnesses, such as diabetes, anxiety disorders might be caused by chemical imbalances in the body. Studies have shown that severe or long-lasting stress can change the balance of chemicals in the brain that control mood. Studies also have shown that anxiety disorders run in families, which means that they can be inherited from one or both parents, like hair or eye color. In addition, certain environmental factors--such as a trauma or significant event--might trigger an anxiety disorder in people who have an inherited susceptibility to developing the disorder. How common are anxiety disorders? Anxiety disorders affect about 40 million adult Americans.They are the most common mental illnesses in the [place] Most anxiety disorders begin in childhood, adolescence and early adulthood. They occur more often in women than in men. How are anxiety disorders diagnosed? If symptoms are present, the doctor will begin an evaluation by performing a complete medical history and physical examination. Although there are no laboratory tests to specifically diagnose anxiety disorders, the doctor might use various diagnostic tests to rule out physical illness as the cause of the symptoms. If no physical illness is found, the person might be referred to a psychiatrist or psychologist, mental health professionals who are specially trained to diagnose and treat mental illnesses. Psychiatrists and psychologists use specially designed interview and assessment tools to evaluate a person for an anxiety disorder. The doctor bases his or her diagnosis on the patient's report of the intensity and duration of symptoms--including any problems with daily functioning caused by the symptoms--and the doctor's observation of the patient's attitude and behavior. The doctor then determines if the patient's symptoms and degree of dysfunction indicate a specific anxiety disorder. The standard reference manual used for the diagnosis of recognized mental illnesses in the [place] is the Diagnostic and Statistical Manual of Mental Disorders (DSM-5), published by the [place] [employer]. How are anxiety disorders treated? Anxiety disorders are real disorders that require treatment. Recovery is not simply a matter of will and self-discipline. Fortunately, much progress has been made in the last two decades in the treatment of people with mental illnesses. Although the exact treatment approach depends on the type of disorder, one or a combination of the following therapies might be used for most anxiety disorders: Medication Medicines used to reduce the symptoms of anxiety disorders include antidepressants and anxiety-reducing medications. Psychotherapy Psychotherapy (a type of counseling) addresses the emotional response to mental illness. It is a process in which trained mental health professionals help people by talking through strategies for understanding and dealing with their disorder. Cognitive-behavioral therapy People suffering from anxiety disorders often participate in this type of therapy in which the person learns to recognize and change thought patterns and behaviors that lead to troublesome feelings. What is the outlook for people with anxiety disorders? Early diagnosis and treatment can limit the problems caused by an anxiety disorder and improve the outlook. Unfortunately, many anxiety disorders are not recognized and, as a result, not treated. Can anxiety disorders be prevented? Anxiety disorders cannot be prevented; however, there are some things you can do to control or decrease symptoms: Stop or reduce your consumption of products that contain caffeine, such as coffee, tea, cola and chocolate. Ask your doctor or pharmacist before taking any hqrm-zpu-[id number] medicines or herbal remedies. Many contain chemicals that can increase anxiety symptoms. Exercise daily and eat a healthy, balanced diet. Seek counseling and support after a traumatic or disturbing experience. References [employer] [employer]. Anxiety Accessed 03/29/2014. [place] [employer]. DSM Accessed 03/29/2014. Copyright 9163-7358 The [facility]. All rights reserved This information is provided by the [facility] and is not intended to replace the medical advice of your doctor or health care provider. Please consult your health care provider for advice about a specific medical condition. For additional health information, please contact the Center for Consumer Health Information at the [facility] or toll-free extension [phone]. If you prefer, you may visit [email or web address] or [email or web address]. This document was last reviewed on: 2017 index#1036 Depression Overview What is depression? Nearly everyone has felt depressed, sad, or blue at one time or another. A depressed mood is a normal reaction to loss, life's struggles, or injured self-esteem. Sometimes, however, depression becomes intense, lasts for long periods, and prevents a person from leading a normal life. If left untreated, depression can get worse, sometimes lasting for years. It can even result in suicide. It is important to recognize the signs of depression and seek help if you see signs of depression in you or a loved one. It is important to know that depression CAN be treated successfully. What are the symptoms of depression? The major symptoms of depression include the following: Feeling extremely sad, anxious, or empty Feeling hopeless Feeling worthless Sleeping too much or too little Loss of enjoyment from things that were once pleasurable Loss of energy Difficulty concentrating, thinking, or making decisions Changes in appetite that lead to weight loss or gain Uncontrollable crying Headache Stomach ache Digestive problems Problems with sexual function Thoughts of or suicide Attempting suicide If you or someone you know is demonstrating any of the following warning signs, contact a primary care doctor, a mental health professional, or a community mental health center. If you feel unsafe, go to the nearest emergency room for evaluation and treatment. What causes depression? Depression may result from various factors in a person's life, including: High levels of stress Life transitions Loss Physical illness Family history of depression Imbalances in the chemicals that the body uses to control mood Certain medicines Lack of social support Lack of good coping skills History of traumatic experiences What are the types of depression? Major depressive disorder (or major depression): A person with this type of depression feels a profound and constant sense of hopelessness and despair. The symptoms of major depression interfere with the person's ability to work, sleep, study, eat, and enjoy themselves, even activities which had previously been pleasurable. This disabling type of depression may occur only once in a lifetime, or more commonly, occurs several times in a lifetime. Minor depression: A person with this type of depression has symptoms for longer than two weeks at a time, but does not meet the criteria for major depression. Dysthymic disorder (or dysthymia or chronic depression): In dysthymia, the main symptom is a low mood on most days for a long period of time. Other depression symptoms may be present, but are not as severe as in major depression. How is depression diagnosed? Your health care provider will ask you to describe your symptoms and medical history. He or she likely will ask if you or anyone in your family has had depression or other mental health problems. You also may need to complete a depression screening questionnaire. Symptoms of depression sometimes are caused by a physical disorder or illness. Your health care provider also may perform a physical exam or laboratory tests to determine if there is a physical cause for the depression. How is depression treated? Treatment recommendations typically depend on the severity and nature of the depression. Treatment interventions often involve antidepressant medication, psychotherapy, or a combination of these interventions. Can depression be prevented? Some individuals who have had an episode of depression are prone to have another one. The best way to prevent another episode is to be aware of the triggers of depression, know your own symptoms, and seek help early if you need it. Why seek help if I have coped with depression before? You may have recognized periods of depression in your life. Perhaps these periods lasted for several months and you learned to cope. But early treatment is important because: Without treatment, depression can become worse. Depression can lead to suicide. Without treatment, people who suffer from episodes of depression often do not fully recover. Treatment can prevent depression from coming back. Your depression may be the sign of another illness, which can worsen without treatment. Depression can increase your risk of developing other diseases, including dementia. Where can I learn more? [facility] [address] [place] [address], [address] [place] [address] [email or web address] National Mental Health Association [address] [facility] [place] [address] 1.800.969-[facility] 6642) [email or web address] References PubMed Health. Fact Sheet: Depression Accessed 12/04/2013. National [place] [facility]. Depression Accessed 12/04/2013. [place] [employer]. Depression Accessed 12/04/2013. Copyright 8809-3591 [facility]. All rights reserved This information is provided by the [facility] and is not intended to replace the medical advice of your doctor or health care provider. Please consult your health care provider for advice about a specific medical condition. For additional health information, please contact the Center for Consumer Health Information at the [facility] or toll-free extension [phone]. If you prefer, you may visit [email or web address] or [email or web address]. This document was last reviewed on: 2017 index#2571 Post Traumatic Stress Disorder: Symptoms, Causes, Risks, Treatment and Medications What is post-traumatic stress disorder? Post-traumatic stress disorder (PTSD) is an anxiety disorder that a person can develop after experiencing or witnessing--either directly or indirectly--a traumatic event or life-threatening situation. A traumatic event involves exposure to , threatened , actual or serious injury, or actual or threatened sexual violence. Specific examples include physical assault, combat exposure, and serious accidents. What are the symptoms of post-traumatic stress disorder? People who have PTSD may have the following symptoms: repeated, intrusive memories of the traumatic event a vivid sense that the traumatic event is happening again (also called a flashback ) nightmares about the event intense distress after being reminded of the event physical symptoms of anxiety, such as nervousness, being startled easily, an inability to concentrate, and insomnia persistent negative emotions about the event, such as guilt, shame, fear, or anger avoiding reminders of the traumatic event amnesia for all or part of the event decreased interest in things that were once important feeling hopeless about the future If these symptoms last longer than a month and interfere with the person's social life, work, or relationships, they may represent PTSD. Most symptoms of PTSD usually occur within three months of the traumatic event, but can emerge years later. Not everyone who experiences a traumatic event will have PTSD. Who develops post-traumatic stress disorder? In the [place], approximately 7-8% of the population will develop PTSD at some point in their lives. It is not known why some people suffer from PTSD after a traumatic event and others do not. However, researchers have identified specific factors that increase risk for PTSD: experiencing trauma caused by other people, such as rape or assault; exposure to long-term or repeated traumas; personal history of mental health problems, especially anxiety disorders; lack of support from family and friends after a trauma. What types of treatment are available for post-traumatic stress disorder? There are several different types of treatment for PTSD. There is no one treatment that works for everyone. If you feel that you may have PTSD, talk with your doctor or mental health provider to determine what treatment options are best for you. Cognitive-behavioral treatments, either individually or in a group format, are regarded as the most effective treatment for PTSD: Prolonged exposure: People who have experienced trauma fear and avoid the thoughts, feelings, and situations that remind them of it. The goal of exposure therapy is to eventually have less fear about your memories, and to learn to control your thoughts and feelings about the traumatic event. Prolonged exposure is a specific therapy that includes four components: education about PTSD and treatment; breathing retraining to help manage anxiety; practice with approaching real-life situations that are related to the trauma; and, talking through the trauma experience. Cognitive processing therapy: This therapy helps with managing upsetting thoughts and feelings, and with gaining a better understanding of the trauma and its effects. Therapy steps include: education about PTSD and treatment; monitoring thoughts and feelings, and understanding how the traumatic event altered your views of yourself, others, and the world; developing skills to change dysfunctional thoughts or stuck points ; and, shifting beliefs affected by the trauma, such as safety, trust in yourself and others, and self-esteem. Cognitive-restructuring therapy: This therapy approach helps people identify and transform dysfunctional thought patterns and beliefs related to the trauma experience. The treatment uses daily diaries to track thoughts and feelings. With the help of your doctor, you will learn to replace those thoughts with more accurate and less upsetting thoughts. Your doctor will also teach you ways to cope with feelings such as anger, guilt, and fear. As you learn how to recognize and change your perceptions about the trauma, symptoms often improve. Eye movement desensitization and reprocessing: Eye movement desensitization and reprocessing is a treatment that includes components of exposure and cognitive therapies. The idea is to use the brain s information processing to resolve trauma reactions. Treatment sessions involve thinking about the trauma, identifying negative trauma-related thoughts, generating positive aspects, and engaging in rapid ibss-ug-ozkt eye movements while focusing on the target trauma. Sounds, tapping, and other methods that activate stimulation of both halves of the brain have proven equally effective and are routinely used. Medications for post-traumatic stress disorder A class of antidepressant medications called selective serotonin reuptake inhibitors (SSRIs) has shown benefit in treating PTSD. Some commonly prescribed SSRIs are citalopram (Celexa), fluoxetine (Prozac), paroxetine (Paxil), and sertraline (Zoloft). Zoloft and Paxil have been approved by the Food and Drug Administration (FDA) for the long-term treatment of PTSD. Overall, the evidence of treatment effectiveness suggests that therapy interventions have a greater impact than medications. However, some people may prefer medications, or may benefit from a combination of therapy and medication. Where can I get more information? National Center for PTSD www.nyptsd.va.gov 534.657.7330 e-mail: [facility] http://www.ptsdalliance.org/ National Suicide Prevention Lifeline If you or someone you know is in a crisis and threatening to hurt or kill himself or herself, immediately call --1 or the National Suicide Prevention Lifeline: 048.026.TALK (9475) References: [place] [employer]. PTSD: National Center for PTSD Accessed 09/25/2014. National [place] [facility]. Post-Traumatic Stress Disorder (PTSD) Accessed 09/25/2014. National Registry of Evidence-based Programs and Practices (NREPP). Eye Movement Desensitization and Reprocessing Accessed 09/25/2014. Copyright 4671-3077 [facility]. All rights reserved This information is provided by the [facility] and is not intended to replace the medical advice of your doctor or health care provider. Please consult your health care provider for advice about a specific medical condition. For additional health information, please contact the Center for Consumer Health Information at the [facility] or toll-free extension [phone]. If you prefer, you may visit [email or web address] or [email or web address]. This document was last reviewed on: 2014 index#8845 documented in this encounter [facility] 03-12-2022 Note HNO ID: [id number] Author: Lizzie Espinoza PA-C Service: ? Author Type: Physician Accuracy Expert Type: Progress Notes Filed: 03/12/2022 5:35 PM Note Text: [facility] GENERAL BEH[facility]IORAL MEDICINE PROGRESS NOTE PATIENT: Elina Lowery MRD: [id number] DATE: March 12, 2022 IDENTIFYING INFORMATION: Elina is a 41 year old female with a history of anxiety, depression, PTSD and ADHD who presents for follow-up. Previous notes/chart have been reviewed. Virtual platform used: [employer]. This Visit is being conducted with the use of a HIPPA compliant telecommunication system permitting interactive audio and or video platform. Proper identity, and was established. Verbal consent to engage in and treat was obtained. It required patient-provider interaction for the medical decision making as documented below. CHIEF COMPLAINT: It has been a difficult month Interim History: The patient states she stopped the Zoloft and started the Effexor XR as discussed last visit. The patient messaged this provider on 03/02/22 stating she felt more anxious. The patient states she is doing better since then. The patient states she had to have her mom pink slipped about 3 weeks ago and she has been admitted to [facility] since. Reports it has been a nightmare . Reports she felt as if she was almost having a heart attack almost every day. Reports she felt a huge phillips of all of her childhood trauma and felt angry at herself for caring for her mom when she did not care for her growing up. Reports she thought about not helping her mom but ultimately decided to. The patient states her mom is a hoarder and she had to clean out her house in order for her mom to return home. 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 Reports she almost called the crisis line because of how bad she was feeling. Reports she was feeling emotional distress, having flashbacks, nightmares, and avoidance symptoms. Reports she was triggered when she thought of the smell of her mom's house and wounds. Reports she had thoughts at night about if she made the right choice. The patient states her sleep was disrupted for a few weeks but it has improved. Reports she is still upset with her mom for putting her in this position but she has been doing better . Reports her mood and anxiety feel better . Reports she anticipates feeling worse when her mom is discharged. Reports she is taking Adderall 10 mg as needed as per neurology still. The patient states she is following up with Neurology in a couple weeks regarding her Adderall. Reports improved concentration, ability to complete tasks, forgetfulness, and impulse control. Reports she is not eating as often when bored or stressed. Reports she is spending less. Reports reduced caffeine use to 1 cup per day. Reports she did find a therapist who she had one visit with but she was almost in crisis mode when she met with her. Reports she has another therapy appointment in two weeks. Reports she did find a trauma-based therapy program through that she is interested in and reached out to. The patient states this was not a good month to assess her response to Effexor XR and she prefers to give it more time. SUBJECTIVE: Depression is reported as better than before. Reports several days of depressed mood, irritability, sleep disturbance, anhedonia, guilt, low motivation and low energy. Anxiety is reported as increased. Reports feeling more anxious, on-edge, and restless with her current stressors with her mom. Reports times where she is more irritable and feels she has no patience. Reports she felt like she was having a heart attack some days. Reports she feels it has been better the past week or so. Denies panic attacks. Sleep is reported as better. Reports trouble sleeping the first part of the month. Reports she has been falling and staying asleep fine this week. Reports sleeping about 7 hours at night this past week. Appetite is reported as the same. The patient reports she does stress eat less. Racing thoughts: Reports continued racing thoughts. Mood swings: Denies. Future oriented thinking: (+) Discusses future goals and plans. SI/SH/HI:Denies SI, SH or HI. Denies hallucinations, delusions, intrusive thoughts, and paranoia. Medication side effects: Reports none. Compliant with medication regiment. Current Outpatient Medications Medication Sig Dispense Refill dextroamphetamine-amphetamine (ADDERALL) 10 mg tablet Take 10 mg by mouth. venlafaxine ER (EFFEXOR XR) 37.5 mg 24 hr capsule Take 1 capsule by mouth once daily. 30 capsule 1 ferrous sulfate 325 mg (65 mg iron) EC tablet Take 1 tablet by mouth twice daily. ondansetron (ZOFRAN) 4 mg tablet Take by mouth. TAKE 1 TABLET BY MOUTH EVERY 8 HOURS NEEDED FOR NAUSEA (Patient not taking: Reported on 11/03/2021 ) senna-docusate (SENNA-S) 8.6-50 mg per tablet Take 2 (more content not included)... [facility] 03-12-2022 Instructions Lizzie Espinoza PA-C - 03/12/2022 5:01 PM EDT Images from the original note were not included. Depression Overview What is depression? Nearly everyone has felt depressed, sad, or blue at one time or another. A depressed mood is a normal reaction to loss, life's struggles, or injured self-esteem. Sometimes, however, depression becomes intense, lasts for long periods, and prevents a person from leading a normal life. If left untreated, depression can get worse, sometimes lasting for years. It can even result in suicide. It is important to recognize the signs of depression and seek help if you see signs of depression in you or a loved one. It is important to know that depression CAN be treated successfully. What are the symptoms of depression? The major symptoms of depression include the following: Feeling extremely sad, anxious, or empty Feeling hopeless Feeling worthless Sleeping too much or too little Loss of enjoyment from things that were once pleasurable Loss of energy Difficulty concentrating, thinking, or making decisions Changes in appetite that lead to weight loss or gain Uncontrollable crying Headache Stomach ache Digestive problems Problems with sexual function Thoughts of or suicide Attempting suicide If you or someone you know is demonstrating any of the following warning signs, contact a primary care doctor, a mental health professional, or a community mental health center. If you feel unsafe, go to the nearest emergency room for evaluation and treatment. What causes depression? Depression may result from various factors in a person's life, including: High levels of stress Life transitions Loss Physical illness Family history of depression Imbalances in the chemicals that the body uses to control mood Certain medicines Lack of social support Lack of good coping skills History of traumatic experiences What are the types of depression? Major depressive disorder (or major depression): A person with this type of depression feels a profound and constant sense of hopelessness and despair. The symptoms of major depression interfere with the person's ability to work, sleep, study, eat, and enjoy themselves, even activities which had previously been pleasurable. This disabling type of depression may occur only once in a lifetime, or more commonly, occurs several times in a lifetime. Minor depression: A person with this type of depression has symptoms for longer than two weeks at a time, but does not meet the criteria for major depression. Dysthymic disorder (or dysthymia or chronic depression): In dysthymia, the main symptom is a low mood on most days for a long period of time. Other depression symptoms may be present, but are not as severe as in major depression. How is depression diagnosed? Your health care provider will ask you to describe your symptoms and medical history. He or she likely will ask if you or anyone in your family has had depression or other mental health problems. You also may need to complete a depression screening questionnaire. Symptoms of depression sometimes are caused by a physical disorder or illness. Your health care provider also may perform a physical exam or laboratory tests to determine if there is a physical cause for the depression. How is depression treated? Treatment recommendations typically depend on the severity and nature of the depression. Treatment interventions often involve antidepressant medication, psychotherapy, or a combination of these interventions. Can depression be prevented? Some individuals who have had an episode of depression are prone to have another one. The best way to prevent another episode is to be aware of the triggers of depression, know your own symptoms, and seek help early if you need it. Why seek help if I have coped with depression before? You may have recognized periods of depression in your life. Perhaps these periods lasted for several months and you learned to cope. But early treatment is important because: Without treatment, depression can become worse. Depression can lead to suicide. Without treatment, people who suffer from episodes of depression often do not fully recover. Treatment can prevent depression from coming back. Your depression may be the sign of another illness, which can worsen without treatment. Depression can increase your risk of developing other diseases, including dementia. Where can I learn more? [facility] [address] [place] [address], [address] [place] [address] [email or web address] National Mental Health Association [address] [facility], [address]th [place] [address] 1.210.964-[facility] ([id number]) [email or web address] References PubMed Health. Fact Sheet: Depression Accessed 12/04/2013. National [place] of Mental Health. Depression Accessed 12/04/2013. [place] [employer]. Depression Accessed 12/04/2013. Copyright 9504-1994 The [facility]. All rights reserved This information is provided by the [facility] and is not intended to replace the medical advice of your doctor or health care provider. Please consult your health care provider for advice about a specific medical condition. For additional health information, please contact the [facility] Information at the [facility] or toll-free extension [phone]. If you prefer, you may visit [email or web address] or [email or web address]. This document was last reviewed on: 2017 index#1417 An Overview of Anxiety Disorders What is an anxiety disorder? Anxiety is a normal human emotion. Many people feel anxious, or nervous, when faced with a problem at work, or before taking a test or making an important decision. Anxiety disorders, however, are different. They can cause such distress that it interferes with a person's ability to lead a normal life. An anxiety disorder is a serious mental illness. People with anxiety disorders respond to certain things or situations with fear and dread, as well as physical signs of anxiety such as a pounding heart and sweating. For people with anxiety disorders, worry and fear are constant and overwhelming, and can be crippling. An anxiety disorder is diagnosed if the person's response is not appropriate for the situation, if the person cannot control the response or if the anxiety interferes with normal functioning. Anxiety disorders can get worse if not treated; however, effective treatments are available. What are the types of anxiety disorders? There are several recognized anxiety disorders, including the following: Panic disorder People with this disorder have feelings of terror that strike suddenly and repeatedly with no warning. Other symptoms of a panic attack include sweating, chest pain, palpitations (unpleasant sensations of irregular heartbeats) and a feeling of choking, which might make the person feel like he or she is having a heart attack or going crazy. Obsessive-compulsive disorder (OCD) People with OCD are plagued by constant thoughts or fears that cause them to perform certain rituals or routines. The disturbing thoughts are called obsessions, and the rituals are called compulsions. An example is a person with an unreasonable fear of germs who constantly washes his or her hands. Post-traumatic stress disorder (PTSD) PTSD is a condition that can develop following a traumatic and/or terrifying event, such as a sexual or physical assault, the unexpected of a loved one, or a natural disaster. People with PTSD often have lasting and frightening thoughts and memories of the event, and tend to be emotionally numb. Social anxiety disorder Also called social phobia, social anxiety disorder involves overwhelming worry and self-consciousness about everyday social situations. The worry often centers on a fear of being judged by others, or behaving in a way that might cause embarrassment or lead to ridicule. Specific phobias A specific phobia is an intense fear of a specific object or situation, such as snakes, heights or flying. The level of fear usually is inappropriate to the situation and might cause the person to avoid common, everyday situations. Generalized anxiety disorder This disorder involves excessive, unrealistic worry and tension, even if there is little or nothing to provoke the anxiety. What are the symptoms of an anxiety disorder? Symptoms vary depending on the type of anxiety disorder, but general symptoms of anxiety include: Feelings of panic, fear and uneasiness Uncontrollable, obsessive thoughts Repeated thoughts or flashbacks of traumatic experiences Nightmares Ritualistic behaviors, such as repeated hand washing Problems sleeping Cold or sweaty hands Shortness of breath Palpitations An inability to be still and calm Dry mouth Numbness or tingling in the hands or feet Nausea Muscle tension What causes anxiety disorders? The exact cause of anxiety disorders is not known; but anxiety disorders--like other forms of mental illness--are not the result of personal weakness, a character flaw or poor upbringing. As scientists continue their research on mental illness, it is becoming clear that many of these disorders are caused by a combination of factors, including biology and environmental stresses. Like certain illnesses, such as diabetes, anxiety disorders might be caused by chemical imbalances in the body. Studies have shown that severe or long-lasting stress can change the balance of chemicals in the brain that control mood. Studies also have shown that anxiety disorders run in families, which means that they can be inherited from one or both parents, like hair or eye color. In addition, certain environmental factors--such as a trauma or significant event--might trigger an anxiety disorder in people who have an inherited susceptibility to developing the disorder. How common are anxiety disorders? Anxiety disorders affect about 40 million adult Americans.They are the most common mental illnesses in the [place] Most anxiety disorders begin in childhood, adolescence and early adulthood. They occur more often in women than in men. How are anxiety disorders diagnosed? If symptoms are present, the doctor will begin an evaluation by performing a complete medical history and physical examination. Although there are no laboratory tests to specifically diagnose anxiety disorders, the doctor might use various diagnostic tests to rule out physical illness as the cause of the symptoms. If no physical illness is found, the person might be referred to a psychiatrist or psychologist, mental health professionals who are specially trained to diagnose and treat mental illnesses. Psychiatrists and psychologists use specially designed interview and assessment tools to evaluate a person for an anxiety disorder. The doctor bases his or her diagnosis on the patient's report of the intensity and duration of symptoms--including any problems with daily functioning caused by the symptoms--and the doctor's observation of the patient's attitude and behavior. The doctor then determines if the patient's symptoms and degree of dysfunction indicate a specific anxiety disorder. The standard reference manual used for the diagnosis of recognized mental illnesses in the [place] is the Diagnostic and Statistical Manual of Mental Disorders (DSM-5), published by the [place] [employer]. How are anxiety disorders treated? Anxiety disorders are real disorders that require treatment. Recovery is not simply a matter of will and self-discipline. Fortunately, much progress has been made in the last two decades in the treatment of people with mental illnesses. Although the exact treatment approach depends on the type of disorder, one or a combination of the following therapies might be used for most anxiety disorders: Medication Medicines used to reduce the symptoms of anxiety disorders include antidepressants and anxiety-reducing medications. Psychotherapy Psychotherapy (a type of counseling) addresses the emotional response to mental illness. It is a process in which trained mental health professionals help people by talking through strategies for understanding and dealing with their disorder. Cognitive-behavioral therapy People suffering from anxiety disorders often participate in this type of therapy in which the person learns to recognize and change thought patterns and behaviors that lead to troublesome feelings. What is the outlook for people with anxiety disorders? Early diagnosis and treatment can limit the problems caused by an anxiety disorder and improve the outlook. Unfortunately, many anxiety disorders are not recognized and, as a result, not treated. Can anxiety disorders be prevented? Anxiety disorders cannot be prevented; however, there are some things you can do to control or decrease symptoms: Stop or reduce your consumption of products that contain caffeine, such as coffee, tea, cola and chocolate. Ask your doctor or pharmacist before taking any xozr-grt-lncnpiy medicines or herbal remedies. Many contain chemicals that can increase anxiety symptoms. Exercise daily and eat a healthy, balanced diet. Seek counseling and support after a traumatic or disturbing experience. References [employer] [employer]. Anxiety Accessed 03/29/2014. [place] [employer]. DSM Accessed 03/29/2014. Copyright 5163-0278 The [facility]. All rights reserved This information is provided by the [facility] and is not intended to replace the medical advice of your doctor or health care provider. Please consult your health care provider for advice about a specific medical condition. For additional health information, please contact the [facility] Information at the [facility] or toll-free extension [phone]. If you prefer, you may visit [email or web address] or [email or web address]. This document was last reviewed on: 2017 index#9536 documented in this encounter [facility] 02-09-2022 Note HNO ID: [id number] Author: Lizzie Espinoza PA-C Service: ? Author Type: Physician Accuracy Expert Type: Progress Notes Filed: 02/09/2022 4:55 PM Note Text: [facility] GENERAL BEH[facility]IORAL MEDICINE PROGRESS NOTE PATIENT: Elina Lowery MRD: [id number] DATE: February 09, 2022 IDENTIFYING INFORMATION: Elina is a 41 year old female with a history of anxiety, depression, PTSD and ADHD who presents for follow-up. Previous notes/chart have been reviewed. Virtual platform used: [employer]/telephone. Switched to telephone visit at 1611 due to patient closing out of [employer] and being unable to reconnect. This Visit is being conducted with the use of a HIPPA compliant telecommunication system permitting interactive audio and or video platform. Proper identity, and was established. Verbal consent to engage in and treat was obtained. It required patient-provider interaction for the medical decision making as documented below. CHIEF COMPLAINT: I am doing about the same Interim History: The patient states she is taking the Zoloft 50 mg daily still. The patient states she feels this is not the best medication for her. Reports she feels she is going through the motions and feels emotionless . Reports she cannot tell the difference on this versus no medication at all. Reports she feels blah . The patient states she is also taking Adderall 10 mg daily since last Wednesday. The patient states her neurologist started her on Adderall 10 mg BID but she has only been taking it once daily. Reports she was not functioning and having problems at work due to her ADHD. Reports she has noticed improvement. Reports she was able to prioritize and get things done. The patient states her shared she seems more easy-going and less irritable. Reports she feels more prepared and her thoughts are less scattered. Reports she was able to focus on what she needed to get done today and it was a relief. The patient states she is interested in trying a new medication other than Zoloft for her mood and anxiety though. The patient states she is also interested in attending therapy. The patient states her PCP provided her with local resources. SUBJECTIVE: Depression is reported as feeling bad about herself and feeling emotionless more than depressed. Reports several days of depressed mood, anhedonia, low motivation and low energy. Anxiety is reported as a little high with getting things done with her kids going back to school. Reports anxiety about school in general due to recent events at school. Reports she is feeling less irritable. Reports her anxiety has been manageable overall. Sleep is reported as good. Reports her kids wake her up early. Reports she has been falling and staying asleep fine. Appetite is reported as fine. Reports she has had to remind herself to eat a few times but reports she is not snacking as much. The patient reports decreased impulsivity with eating. Racing thoughts: Reports continued racing thoughts. Mood swings: Denies. Future oriented thinking: (+) Discusses future goals and plans. SI/SH/HI:Denies SI, intent or plan. Denies SH or HI. Denies hallucinations, delusions, intrusive thoughts, and paranoia. Medication side effects: Reports none. Compliant with medication regiment. Current Outpatient Medications Medication Sig Dispense Refill dextroamphetamine-amphetamine (ADDERALL) 10 mg tablet Take 10 mg by mouth. venlafaxine ER (EFFEXOR XR) 37.5 mg 24 hr capsule Take 1 capsule by mouth once daily. 30 capsule 1 ferrous sulfate 325 mg (65 mg iron) EC tablet Take 1 tablet by mouth twice daily. ondansetron (ZOFRAN) 4 mg tablet Take by mouth. TAKE 1 TABLET BY MOUTH EVERY 8 HOURS NEEDED FOR NAUSEA (Patient not taking: Reported on 11/03/2021 ) senna-docusate (SENNA-S) 8.6-50 mg per tablet Take 2 tablets by mouth. BD LUER-OLINDA SYRINGE 3 mL 25 x 1 1/2 as directed. ARMOUR THYROID 90 mg topiramate (TOPAMAX) 50 mg tablet Take 50 mg by mouth twice daily. metFORMIN ER (GLUCOPHAGE XR) 750 mg 24 hr tablet polyethylene glycol 3350 (MIRALAX) 17 gram/dose powder Take 17 g by mouth once daily. Dissolve dose in 4 - 8 ounces of liquid and take as directed. [address] (PROTONIX) 40 mg tablet Take 1 tablet by mouth once daily. 30 tablet 2 fluticasone propionate (FLONASE NASAL) Use in the nose. cyanocobalamin 1,000 mcg/mL soln ergocalciferol, vitamin D2, (DRISDOL) 50,000 unit capsule metFORMIN (GLUCOPHAGE) 500 mg tablet No current facility-administered medications for this visit. No significant changes reported in medical history. Past Family and Social History Reviewed. Substance Use History: Reports no change since previous visit. Reports rare alcohol use. Denies tobacco or illicit substance use. LAB DATA: Reviewed. VITAL SIGNS: No vitals taken at this visit. Review of Systems Constitutional: Negative for chills, diaphoresis, f (more content not included)... [facility] 02-09-2022 Instructions Lizzie Espinoza PA-C - 02/09/2022 4:44 PM EDT Images from the original note were not included. An Overview of Anxiety Disorders What is an anxiety disorder? Anxiety is a normal human emotion. Many people feel anxious, or nervous, when faced with a problem at work, or before taking a test or making an important decision. Anxiety disorders, however, are different. They can cause such distress that it interferes with a person's ability to lead a normal life. An anxiety disorder is a serious mental illness. People with anxiety disorders respond to certain things or situations with fear and dread, as well as physical signs of anxiety such as a pounding heart and sweating. For people with anxiety disorders, worry and fear are constant and overwhelming, and can be crippling. An anxiety disorder is diagnosed if the person's response is not appropriate for the situation, if the person cannot control the response or if the anxiety interferes with normal functioning. Anxiety disorders can get worse if not treated; however, effective treatments are available. What are the types of anxiety disorders? There are several recognized anxiety disorders, including the following: Panic disorder People with this disorder have feelings of terror that strike suddenly and repeatedly with no warning. Other symptoms of a panic attack include sweating, chest pain, palpitations (unpleasant sensations of irregular heartbeats) and a feeling of choking, which might make the person feel like he or she is having a heart attack or going crazy. Obsessive-compulsive disorder (OCD) People with OCD are plagued by constant thoughts or fears that cause them to perform certain rituals or routines. The disturbing thoughts are called obsessions, and the rituals are called compulsions. An example is a person with an unreasonable fear of germs who constantly washes his or her hands. Post-traumatic stress disorder (PTSD) PTSD is a condition that can develop following a traumatic and/or terrifying event, such as a sexual or physical assault, the unexpected of a loved one, or a natural disaster. People with PTSD often have lasting and frightening thoughts and memories of the event, and tend to be emotionally numb. Social anxiety disorder Also called social phobia, social anxiety disorder involves overwhelming worry and self-consciousness about everyday social situations. The worry often centers on a fear of being judged by others, or behaving in a way that might cause embarrassment or lead to ridicule. Specific phobias A specific phobia is an intense fear of a specific object or situation, such as snakes, heights or flying. The level of fear usually is inappropriate to the situation and might cause the person to avoid common, everyday situations. Generalized anxiety disorder This disorder involves excessive, unrealistic worry and tension, even if there is little or nothing to provoke the anxiety. What are the symptoms of an anxiety disorder? Symptoms vary depending on the type of anxiety disorder, but general symptoms of anxiety include: Feelings of panic, fear and uneasiness Uncontrollable, obsessive thoughts Repeated thoughts or flashbacks of traumatic experiences Nightmares Ritualistic behaviors, such as repeated hand washing Problems sleeping Cold or sweaty hands Shortness of breath Palpitations An inability to be still and calm Dry mouth Numbness or tingling in the hands or feet Nausea Muscle tension What causes anxiety disorders? The exact cause of anxiety disorders is not known; but anxiety disorders--like other forms of mental illness--are not the result of personal weakness, a character flaw or poor upbringing. As scientists continue their research on mental illness, it is becoming clear that many of these disorders are caused by a combination of factors, including biology and environmental stresses. Like certain illnesses, such as diabetes, anxiety disorders might be caused by chemical imbalances in the body. Studies have shown that severe or long-lasting stress can change the balance of chemicals in the brain that control mood. Studies also have shown that anxiety disorders run in families, which means that they can be inherited from one or both parents, like hair or eye color. In addition, certain environmental factors--such as a trauma or significant event--might trigger an anxiety disorder in people who have an inherited susceptibility to developing the disorder. How common are anxiety disorders? Anxiety disorders affect about 40 million adult Americans.They are the most common mental illnesses in the [place] Most anxiety disorders begin in childhood, adolescence and early adulthood. They occur more often in women than in men. How are anxiety disorders diagnosed? If symptoms are present, the doctor will begin an evaluation by performing a complete medical history and physical examination. Although there are no laboratory tests to specifically diagnose anxiety disorders, the doctor might use various diagnostic tests to rule out physical illness as the cause of the symptoms. If no physical illness is found, the person might be referred to a psychiatrist or psychologist, mental health professionals who are specially trained to diagnose and treat mental illnesses. Psychiatrists and psychologists use specially designed interview and assessment tools to evaluate a person for an anxiety disorder. The doctor bases his or her diagnosis on the patient's report of the intensity and duration of symptoms--including any problems with daily functioning caused by the symptoms--and the doctor's observation of the patient's attitude and behavior. The doctor then determines if the patient's symptoms and degree of dysfunction indicate a specific anxiety disorder. The standard reference manual used for the diagnosis of recognized mental illnesses in the [place] is the Diagnostic and Statistical Manual of Mental Disorders (DSM-5), published by the [place] [employer]. How are anxiety disorders treated? Anxiety disorders are real disorders that require treatment. Recovery is not simply a matter of will and self-discipline. Fortunately, much progress has been made in the last two decades in the treatment of people with mental illnesses. Although the exact treatment approach depends on the type of disorder, one or a combination of the following therapies might be used for most anxiety disorders: Medication Medicines used to reduce the symptoms of anxiety disorders include antidepressants and anxiety-reducing medications. Psychotherapy Psychotherapy (a type of counseling) addresses the emotional response to mental illness. It is a process in which trained mental health professionals help people by talking through strategies for understanding and dealing with their disorder. Cognitive-behavioral therapy People suffering from anxiety disorders often participate in this type of therapy in which the person learns to recognize and change thought patterns and behaviors that lead to troublesome feelings. What is the outlook for people with anxiety disorders? Early diagnosis and treatment can limit the problems caused by an anxiety disorder and improve the outlook. Unfortunately, many anxiety disorders are not recognized and, as a result, not treated. Can anxiety disorders be prevented? Anxiety disorders cannot be prevented; however, there are some things you can do to control or decrease symptoms: Stop or reduce your consumption of products that contain caffeine, such as coffee, tea, cola and chocolate. Ask your doctor or pharmacist before taking any iirh-vvc-rygbama medicines or herbal remedies. Many contain chemicals that can increase anxiety symptoms. Exercise daily and eat a healthy, balanced diet. Seek counseling and support after a traumatic or disturbing experience. References [place] [employer]. Anxiety Accessed 03/29/2014. [place] [employer]. DSM Accessed 03/29/2014. Copyright 8327-3604 [facility]. All rights reserved This information is provided by the [facility] and is not intended to replace the medical advice of your doctor or health care provider. Please consult your health care provider for advice about a specific medical condition. For additional health information, please contact the Center for Consumer Health Information at the [facility] or toll-free extension [phone]. If you prefer, you may visit [email or web address] or [email or web address]. This document was last reviewed on: 2017 index#1636 Depression Overview What is depression? Nearly everyone has felt depressed, sad, or blue at one time or another. A depressed mood is a normal reaction to loss, life's struggles, or injured self-esteem. Sometimes, however, depression becomes intense, lasts for long periods, and prevents a person from leading a normal life. If left untreated, depression can get worse, sometimes lasting for years. It can even result in suicide. It is important to recognize the signs of depression and seek help if you see signs of depression in you or a loved one. It is important to know that depression CAN be treated successfully. What are the symptoms of depression? The major symptoms of depression include the following: Feeling extremely sad, anxious, or empty Feeling hopeless Feeling worthless Sleeping too much or too little Loss of enjoyment from things that were once pleasurable Loss of energy Difficulty concentrating, thinking, or making decisions Changes in appetite that lead to weight loss or gain Uncontrollable crying Headache Stomach ache Digestive problems Problems with sexual function Thoughts of or suicide Attempting suicide If you or someone you know is demonstrating any of the following warning signs, contact a primary care doctor, a mental health professional, or a [facility] center. If you feel unsafe, go to the nearest emergency room for evaluation and treatment. What causes depression? Depression may result from various factors in a person's life, including: High levels of stress Life transitions Loss Physical illness Family history of depression Imbalances in the chemicals that the body uses to control mood Certain medicines Lack of social support Lack of good coping skills History of traumatic experiences What are the types of depression? Major depressive disorder (or major depression): A person with this type of depression feels a profound and constant sense of hopelessness and despair. The symptoms of major depression interfere with the person's ability to work, sleep, study, eat, and enjoy themselves, even activities which had previously been pleasurable. This disabling type of depression may occur only once in a lifetime, or more commonly, occurs several times in a lifetime. Minor depression: A person with this type of depression has symptoms for longer than two weeks at a time, but does not meet the criteria for major depression. Dysthymic disorder (or dysthymia or chronic depression): In dysthymia, the main symptom is a low mood on most days for a long period of time. Other depression symptoms may be present, but are not as severe as in major depression. How is depression diagnosed? Your health care provider will ask you to describe your symptoms and medical history. He or she likely will ask if you or anyone in your family has had depression or other mental health problems. You also may need to complete a depression screening questionnaire. Symptoms of depression sometimes are caused by a physical disorder or illness. Your health care provider also may perform a physical exam or laboratory tests to determine if there is a physical cause for the depression. How is depression treated? Treatment recommendations typically depend on the severity and nature of the depression. Treatment interventions often involve antidepressant medication, psychotherapy, or a combination of these interventions. Can depression be prevented? Some individuals who have had an episode of depression are prone to have another one. The best way to prevent another episode is to be aware of the triggers of depression, know your own symptoms, and seek help early if you need it. Why seek help if I have coped with depression before? You may have recognized periods of depression in your life. Perhaps these periods lasted for several months and you learned to cope. But early treatment is important because: Without treatment, depression can become worse. Depression can lead to suicide. Without treatment, people who suffer from episodes of depression often do not fully recover. Treatment can prevent depression from coming back. Your depression may be the sign of another illness, which can worsen without treatment. Depression can increase your risk of developing other diseases, including dementia. Where can I learn more? [facility] [address] [place] [address], [address] [place] [address] [phone] www.nahid.org National Mental Health Association [address] [facility] [place] [address] 1.800.969-[facility] 6642) [email or web address] References PubMed Health. Fact Sheet: Depression Accessed 12/04/2013. National [place] of [employer]. Depression Accessed 12/04/2013. [place] [employer]. Depression Accessed 12/04/2013. Copyright 6838-0694 [facility]. All rights reserved This information is provided by the [facility] and is not intended to replace the medical advice of your doctor or health care provider. Please consult your health care provider for advice about a specific medical condition. For additional health information, please contact the Center for Consumer Health Information at the [facility] or toll-free extension [phone]. If you prefer, you may visit [email or web address] or [email or web address]. This document was last reviewed on: 2017 index#9290 Attention Deficit Hyperactivity Disorder (ADHD) in Adults How is ADHD in adults diagnosed? It is not easy for a doctor to diagnose adult attention deficit/hyperactivity disorder (ADHD). Sometimes, an adult will recognize the symptoms of ADHD in himself or herself when a son or daughter is diagnosed. Other times, adults will seek professional help for themselves and find that their depression or anxiety is related to ADHD. In order to be diagnosed with ADHD, an adult must have childhood-onset and persistent, current symptoms. For an accurate diagnosis, the following are recommended: A history of the adult's behavior as a child An interview with the adult's life partner, parent, close friend, or other close associate A physical examination Psychological tests What are symptoms related to adult ADHD? ADHD symptoms continue as problems into adulthood for more than 60 percent of children with ADHD. The following behaviors and problems might stem directly from ADHD, or might be the result of related adjustment difficulties: Chronic lateness and forgetfulness Anxiety Lack of organizational skills Low self-esteem Employment problems Difficulty controlling anger Impulsiveness If these difficulties are not managed appropriately, they can cause emotional, social, occupational, and academic problems in adults. What are types of behavioral treatments for adult ADHD? Adult ADHD might be treated with one or more of the following: Individual cognitive and behavioral therapy to enhance self-esteem Relaxation training and stress management to reduce anxiety and stress Behavioral coaching to teach the person strategies for organizing home and work activities medical review coordinator or mentoring to support better working relationships and improve on-the-job performance Family education and therapy What strategies can help an adult with ADHD succeed in the workplace? Some adults with ADHD have benefited from: Time-management training; Relaxation and stress management training; Occupational therapy to teach strategies for organizing home and work activities; and, medical review coordinator or mentoring to support better working relationships and improve on-the-job performance. What strategies can parents with ADHD use to resolve conflicts with ADHD children? Be aware. Accept the fact that you are angry, frustrated, and fearful. So is your teen--although his bravado may hide it. You can't help your child through tough times if you can't control your emotions. If you can't, seek the help of a doctor or therapist. Be honest and positive. Admit to your child that having ADHD is not easy, that it takes a lot of effort to stay on track. Tell him/her about some of the challenges you have faced, and the ways you have succeeded. Use humor to deflect anxiety. Always reinforce your child's strengths. Practice healthy confrontation. If you are about to lose your temper, use these techniques: Avoid accusation --focus on solutions to the problem and teach your teen to find alternatives that work. Focus on the behavior --make it clear that your son is not the sum of his behaviors, and that he, within reason, can control them. If you or your child starts to shout, break the pattern by speaking softly. Stick to your word. It isn't easy for people with ADHD to remain disciplined enough to mete out consequences. Make this a priority. If you told your son he must be home by 10 or he will lose his car privileges, and he comes home at 11, don't get angry. Take away his car privileges. This may be inconvenient--you may have to drive him to his tutoring sessions--but do it anyway. If you don't, your son will miss out on learning to equate his actions with consequences and on seeing that a person with ADHD can demonstrate responsible behavior. Avoid the guilt trap. You may have challenges like those of your son, but he is his own person. ADD is an explanation of behaviors, not an excuse for them. Your own failures don't mean you shouldn't have reasonable expectations for him. Humor them a little. Parents who have a sense of humor during tense, stressful situations may make their teen feel more accepted, less anxious, and better able to regulate his emotions, say researchers. Accept your imperfections. It is difficult enough to deal with your own ADHD, let alone your teen's. Don't let the perception that you've failed as a parent, because of your son's challenges, affect your interactions with him. You are a role model for your son, imperfections and all. References National [place] of Mental Health. Can Adults Have ADHD? www.nimh.nih.gov Accessed 09/11/2011 Children and Adults with Attention Deficit/Hyperactivity Disorder. Coaching for Adults with ADHD www.lawj2ajkc.org Accessed 09/11/2011 [place] [employer]. August 2011 Monitor on Psychology: Bringing life into focus www.apa.org Accessed 09/11/2011 Copyright 7621-7176 [facility]. All rights reserved This information is provided by the [facility] and is not intended to replace the medical advice of your doctor or health care provider. Please consult your health care provider for advice about a specific medical condition. For additional health information, please contact the Center for Consumer Health Information at the [facility] or toll-free extension [phone]. If you prefer, you may visit [email or web address] or [email or web address]. This document was last reviewed on: 2011 index#5197 documented in this encounter [facility] 02-09-2022 History of Present illness Narrative [facility] PROGRESS NOTE PATIENT: Elina Lowery MRD: [id number] DATE: February 09, 2022 IDENTIFYING INFORMATION: Elina is a 41 year old female with a history of anxiety, depression, PTSD and ADHD who presents for follow-up. Previous notes/chart have been reviewed. Virtual platform used: everyArtom/telephone. Switched to telephone visit at 1611 due to patient closing out of [employer] and being unable to reconnect. This Visit is being conducted with the use of a HIPPA compliant telecommunication system permitting interactive audio and or video platform. Proper identity, and was established. Verbal consent to engage in and treat was obtained. It required patient-provider interaction for the medical decision making as documented below. CHIEF COMPLAINT: I am doing about the same Interim History: The patient states she is taking the Zoloft 50 mg daily still. The patient states she feels this is not the best medication for her. Reports she feels she is going through the motions and feels emotionless . Reports she cannot tell the difference on this versus no medication at all. Reports she feels blah . The patient states she is also taking Adderall 10 mg daily since last Wednesday. The patient states her neurologist started her on Adderall 10 mg BID but she has only been taking it once daily. Reports she was not functioning and having problems at work due to her ADHD. Reports she has noticed improvement. Reports she was able to prioritize and get things done. The patient states her shared she seems more easy-going and less irritable. Reports she feels more prepared and her thoughts are less scattered. Reports she was able to focus on what she needed to get done today and it was a relief. The patient states she is interested in trying a new medication other than Zoloft for her mood and anxiety though. The patient states she is also interested in attending therapy. The patient states her PCP provided her with local resources. SUBJECTIVE: Depression is reported as feeling bad about herself and feeling emotionless more than depressed. Reports several days of depressed mood, anhedonia, low motivation and low energy. Anxiety is reported as a little high with getting things done with her kids going back to school. Reports anxiety about school in general due to recent events at school. Reports she is feeling less irritable. Reports her anxiety has been manageable overall. Sleep is reported as good. Reports her kids wake her up early. Reports she has been falling and staying asleep fine. Appetite is reported as fine. Reports she has had to remind herself to eat a few times but reports she is not snacking as much. The patient reports decreased impulsivity with eating. Racing thoughts: Reports continued racing thoughts. Mood swings: Denies. Future oriented thinking: (+) Discusses future goals and plans. SI/SH/HI:Denies SI, intent or plan. Denies SH or HI. Denies hallucinations, delusions, intrusive thoughts, and paranoia. Medication side effects: Reports none. Compliant with medication regiment. Current Outpatient Medications Medication Sig Dispense Refill dextroamphetamine-amphetamine (ADDERALL) 10 mg tablet Take 10 mg by mouth. venlafaxine ER (EFFEXOR XR) 37.5 mg 24 hr capsule Take 1 capsule by mouth once daily. 30 capsule 1 ferrous sulfate 325 mg (65 mg iron) EC tablet Take 1 tablet by mouth twice daily. ondansetron (ZOFRAN) 4 mg tablet Take by mouth. TAKE 1 TABLET BY MOUTH EVERY 8 HOURS NEEDED FOR NAUSEA (Patient not taking: Reported on 11/03/2021 ) senna-docusate (SENNA-S) 8.6-50 mg per tablet Take 2 tablets by mouth. BD LUER-OLINDA SYRINGE 3 mL 25 x 1 1/2 as directed. ARMOUR THYROID 90 mg topiramate (TOPAMAX) 50 mg tablet Take 50 mg by mouth twice daily. metFORMIN ER (GLUCOPHAGE XR) 750 mg 24 hr tablet polyethylene glycol 3350 (MIRALAX) 17 gram/dose powder Take 17 g by mouth once daily. Dissolve dose in 4 - 8 ounces of liquid and take as directed. [address] (PROTONIX) 40 mg tablet Take 1 tablet by mouth once daily. 30 tablet 2 fluticasone propionate (FLONASE NASAL) Use in the nose. cyanocobalamin 1,000 mcg/mL soln ergocalciferol, vitamin D2, (DRISDOL) 50,000 unit capsule metFORMIN (GLUCOPHAGE) 500 mg tablet No current facility-administered medications for this visit. No significant changes reported in medical history. Past Family and Social History Reviewed. Substance Use History: Reports no change since previous visit. Reports rare alcohol use. Denies tobacco or illicit substance use. LAB DATA: Reviewed. VITAL SIGNS: No vitals taken at this visit. Review of Systems Constitutional: Negative for chills, diaphoresis, fever, malaise/fatigue and weight loss. Respiratory: Negative for cough. Cardiovascular: Negative for chest pain and palpitations. Gastrointestinal: Negative for abdominal pain, diarrhea, heartburn, nausea and vomiting. Neurological: Positive for headaches. PMH of migraines. Psychiatric/Behavioral: Positive for depression. Negative for hallucinations, substance abuse and suicidal ideas. The patient is nervous/anxious. The patient does not have insomnia. Mental Status Exam: General/Sensorium: Alert and & interactive, AO X 4 and In no distress - Appearance: Appears well groomed and stated age - Eye Contact: Appropriate eye contact - Demeanor: Appropriately interactive and Cooperative - Motor Activity: Normal - Speech: Appropriate and Articulate with appropriate rhythm and volume - Mood: Reports feeling depressed and Anxious - Affect: Full range - Thought Process: Linear, logical, and goal-directed - Associations: Normal - Thought Content: Appropriate with no SI/HI/AVH, Perseverating on stressors and Talking about future goals or plans - Perceptions: The patient does not appear internally stimulated - Cognition: Appears intact in regards to memory, attention/concentration, fund of knowledge and language skills - Insight: Good - Judgment: Good - RATING SCALES: Depression Screening: PHQ-9 All Questions 12/01/2021 02/09/2022 Little interest or pleasure in doing things 2 1 Feeling down, depressed, or hopeless 2 1 Trouble falling or staying asleep, or sleeping too much 3 1 Feeling tired or having little energy 3 1 Poor appetite or overeating 3 3 Feeling bad about yourself - or that you are a failure or have let yourself or your family down 3 1 Trouble concentrating on things, such as reading the newspaper or watching television 3 3 Moving or speaking so slowly that other people could have noticed. Or the opposite - being so fidgety or restless that you have been moving around a lot more than usual 2 1 Thoughts that you would be better off , or of hurting yourself in some way 0 0 PHQ-9 Score 21 12 VENESSA-7 Screening: VENESSA-7 All Questions 12/01/2021 02/09/2022 Nervous, anxious or on edge 3 1 Not being able to stop or control worrying 2 2 Worrying too much 2 1 Trouble relaxing 3 1 Restless 3 1 Annoyed or irritable 3 2 Afraid something awful might happen 2 0 VENESSA-7 Score 18 8 [place] SUICIDE SEVERITY RATING SCALE 1.) Wish to be : Have you wished you were or wished you could go to sleep and not wake up? NO 2.) Suicidal Thoughts: Have you actually had any thoughts of killing yourself? NO 6.)Suicide Behavior Question: Have you ever done anything, started to do anything, or prepared to do anything to end your life?YES, Over a year ago. Reports 1 suicide attempt - attempted overdose at age 25. RISK LEVEL RISK/PROTECTIVE FACTOR SUICIDALITY POSSIBLE INTERVENTIONS High Psychiatric disorders with severe symptoms, or acute precipitating event; protective factors not relevant Potentially lethal suicide attempt or persistent ideation with strong intent or suicide rehearsal Admission generally indicated unless a significant change reduces risk. Suicide precautions Moderate Multiple risk factors, few protective factors Suicidal ideation with plan, but no intent or behavior Admission may be necessary depending on risk factors. Develop crisis plan. Give emergency/crisis numbers Low Modifiable risk factors, strong protective factors Thoughts of , no plan, intent or behavior Outpatient referral, symptom reduction. Give emergency/crisis numbers Risk level: Low. Reason for risk level: The patient denies current SI, intent or plan. ASSESSMENT/PLAN: 1. Moderate episode of recurrent major depressive disorder (HCC) - ICD9: 296.32, ICD10: F33.1 (primary diagnosis) 2. Anxiety disorder, unspecified type - ICD9: 300.00, ICD10: F41.9 3. History of ADHD - ICD9: V11.8, ICD10: Z86.59 4. History of posttraumatic stress disorder (PTSD) - ICD9: V11.8, ICD10: Z86.59 Discontinue Zoloft as patient prefers to discontinue. Discussed taper schedule and patient endorsed understanding. Start Effexor XR 37.5 mg daily to target anxiety and depression. Discussed SE/AE and risks versus benefits. Patient endorsed understanding. Continue Adderall 10 mg up to BID as per neurology. Recommend psychotherapy. Patient defers consult at this time and prefers to start with local community resources. PDMP website checked and validated. All prescriptions have been APPROPRIATELY filled. No suspicious activity was identified. 02/09/2022 by Lizzie Espinoza PA-C The patient was instructed on how to contact our office in case of emergencies during normal business hours Wednesday-Wednesday 8:00 AM-5:00 PM. In case of emergency after hours, the patient was instructed to go to the nearest emergency department. Encouraged to monitor sleep, mood, anxiety, and identifiable triggers of causation, and to report them along with any other changes. This plan was formulated using an evidence based approach. The plan was discussed with individual, along with risk vs. benefits explanation, side effects/adverse effects, and questions were answered. Noting that the individual understands and agrees to adhere to the treatment plan. I spent a total of 29 minutes on the date of the service which included preparing to see the patient, [id number] patient care, completing clinical documentation, obtaining and/or reviewing separately obtained history, performing a medically appropriate examination, counseling and educating the patient/family/caregiver, ordering medications, tests, or procedures, independently interpreting results (not separately reported), and communicating results to the patient/family/caregiver. Return in about 4 weeks (around 03/09/2022) for medication management. Signature: Lizzie Espinoza PA-C documented in this encounter [facility] 01-07-2022 Miscellaneous Notes Called patient and left voicemail regarding no showing for appointment on 01/06/22. documented in this encounter [facility] 12-16-2021 Miscellaneous Notes IPW SENT documented in this encounter [facility] 12-12-2021 Miscellaneous Notes PT LVM rtn missed callback, request to [facility] appt. Called back PT no answer LVM documented in this encounter [facility] 12-11-2021 Miscellaneous Notes PT LVM requesting to [facility] appt. She was ref by her pcp. Called back pt no answer LVM. documented in this encounter [facility] 12-01-2021 Note HNO ID: [id number] Author: Lizzie Espinoza PA-C Service: ? Author Type: Physician Accuracy Expert Type: Progress Notes Filed: 12/01/2021 4:52 PM Note Text: [facility] INITIAL PSYCHIATRIC EVALUATION PATIENT: Elina Lowery MRD: [id number] DATE: December 01, 2021 Virtual platform used: [employer]. Switched to telephone visit at 2:10 pm due to technical difficulties. This Visit is being conducted with the use of a HIPPA compliant telecommunication system permitting interactive audio and or video platform. Proper identity, and was established. Verbal consent to engage in and treat was obtained. It required patient-provider interaction for the medical decision making as documented below. IDENTIFYING INFORMATION: Elina is a 41 year old female with a history of anxiety and PTSD. New to this provider, seeking evaluation. Individual presented alert and oriented X3 and appears stated age. Casually dressed with good grooming and hygiene. Behavior is calm and cooperative. Eye contact is good. Psychomotor activity is WNL. Ambulates independently with a steady gait, no involuntary movements noted. Conversations are spontaneously initiated and thoughts are logical, goal directed, and coherent. Insight and judgment are intact. CHIEF COMPLAINT: My medications are not working HPI: The patient states she made this appointment to discuss her medication and see if she can be put on something else. Reports she is currently on Prozac, but it is not working . Reports her history with mental health began in childhood. Reports she was raised in a household that did not believe in mental health. Reports she knows her mother and grandmother had some serious issues with mental health but went untreated. Reports these are the people who raised her and therefore, she did not really seek care for her mental health till she was in her 30's. The patient states she was working with a psychiatrist in [place] before [facility] but then her insurance stopped being accepted. Reports previous diagnoses of PTSD, depression, anxiety and ADHD. Reports she started seeing her PCP for help last when her daughter was born (currently 11 months old) and was started on Prozac. Reports she was not noticing improvement so they took her off of that and placed her on Wellbutrin. Reports she felt anxious and on-edge. Reports she has since been placed back on Prozac and is currently taking 80 mg daily. The patient states she struggles in several areas currently. Reports she grew up with her mom and grandma who both had untreated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
== END | disposition home or self-care (01) ==
PROVIDERS: PCP Family Medicine; Referring Provider Internal Medicine Endocrinology, Diabetes & Metabolism; Visit Provider Internal Medicine Endocrinology, Diabetes & Metabolism
DX: E04.9 Nontoxic goiter, unspecified (principal)
CPT/HCPCS: 76536

== ENCOUNTER → 2023-08-16 | Outpatient (CLI) | payer OTHER, SELFPAY ==
--- OUTSIDE RECORDS SUMMARY | 2023-08-16 11:54 | XMS RPT_ITS | CCD ---
Author Name Unknown Address [address] [place] [address] Organization [facility] Care Team Providers Care Supervisor [employer] Name Role Phone BREANNA HINES Unavailable Unavailable SWETA CHAPMAN Unavailable Unavailable Breanna Hines Primary Care Provider DR BREANNA HINES DO Primary Care Physician Breanna Hines DO Primary Care Provider [phone] Breanna Hines DO Primary Care Provider Breanna Hines Primary Care Provider Breanna Hines Primary Care Provider OLGA LIDIA ESPINOZA Attending Unavailable OLGA LIDIA ESPINOZA Referring Unavailable BREANNA HINES Primary Care Unavailable ALEXIS, OLGA LIDIA Attending Unavailable ALEXIS, OLGA LIDIA Referring Unavailable BREANNA HINES Primary Care Unavailable BREANNA HINES Primary Care Unavailable OLGA LIDIA ESPINOZA Attending Unavailable ALEXIS, OLGA LIDIA Attending Unavailable ALEXIS, OLGA LIDIA Referring Unavailable BREANNA HINES Primary Care Unavailable Breanna Hines Primary Care Provider Thomas Lamb MD Primary Care Provider FAHEEM FELT STRIP FINISHER-CNJEFFREY Francis Attending VAHID Lake MD Attending Unavail able UNKNOWN, PCP Primary Care Unavailable MD CASSIUS MALAGON Attending Adriana mitchell Unknown, Referring Provider Unavailable Unav Thomas Broussard MD Primary Care Provider CRISTINA GRIFFITH Attending Unavailable THOMAS LAMB Primary Care Unavailable CRISTINA GRIFFITH Referring Unavailable Allergies Allergy Classification Reported Allergen(s) Allergy Type Date of Onset Reaction(s) Facility (20 sources) Albuterol; Translations: [ALBUTEROL] Drug Allergy 6 Rash [facility] Repository (20 sources) Ciprofloxacin; Translations: [CIPROFLOXACIN] Drug Allergy 7 Other (See Comments), Other: See Comments, Rash, Other [facility]- [place], [place] Medications Current Medications Medication Drug Class(es) Dates Sig (Normalized) Sig (Original) atomoxetine 40 mg oral capsule (6 sources) Norepinephrine Reuptake Inhibitor Start: 10-30-2022 End: [...] Biliary calculus 08-08-2020 Episodic Headache; including migraine (20 sources) Migraine with aura; Translations: [Migraine with aura, not intractable, without status migrainosus] Onset: 02-04-2015 02-04-2015 Chronic Mood disorders (20 sources) Recurrent major depressive episodes, moderate ; Translations: [Major depressive disorder, recurrent, moderate] Onset: 10-10-2018 10-10-2018 Chronic Nutritional deficiencies (1 source) Vitamin D deficiency; Translations: [Vitamin D deficiency, unspecified] Chronic Other gastrointestinal disorders (12 sources) Irritable bowel syndrome; Translations: [Irritable bowel syndrome without diarrhea] Onset: 02-04-2015 02-04-2015 Chronic Other gastrointestinal disorders (12 sources) Intestinal malabsorption; Translations: [Intestinal malabsorption, unspecified] [...] Episodic Other nutritional; endocrine; and metabolic disorders (12 sources) Obesity; Translations: [Obesity, unspecified] Onset: 01-31-2015 01-31-2015 Chronic Other nutritional; endocrine; and metabolic disorders (9 sources) Body mass index 40+ - severely obese; Translations: [Body mass index (BMI) 40.0-44.9, adult] Onset: 12-29-2019 12-29-2019 Chronic Other nutritional; endocrine; and metabolic disorders (1 source) Weight gain; Translations: [Abnormal weight gain] Episodic Other and delivery including normal (1 source) 07-15-2021 Episodic Past or Other Problems Problem Classification Problem Date Documented Da te Episodic/Chronic Deficiency and other anemia (12 sources) Anemia; Translations: [Anemia, unspecified] Onset: 01-31-2015 01-31-2015 Episodic Diseases of mouth; excluding dental (1 source) Geographic tongue Onset: 12-09-2017 Episodic Nutritional deficiencies (12 sources) Deficiency of multiple nutrient elements; Translations: [Deficiency of multiple nutrient elements] Onset: 12-30-2017 12-30-2017 Episodic Other complications of (6 sources) Multigravida of advanced maternal age; Translations: [Supervision of elderly multigravida, unspecified trimester] Onset: 10-04-2020 04-22-2022 Episodic Results Test Name Value Interpretation Reference Range Facil ity Vital Signs Date Time Vital Sign Value Performing Clinician Faci lity 10-30-2022 14:52-0400 Body height 165.1 cm Cristina Griffith APRN - HYDRAULIC AND PLUMBING INSTALLER Work Phone: [facility] [employer] 10-30-2022 14:52-0400 Body mass index (BMI) [Ratio] 35.78 kg/m2 Cristina Griffith APRN - HYDRAULIC AND PLUMBING INSTALLER Work Phone: [facility] [employer] 10-30-2022 14:52-0400 Body temperature 97.9 [degF] Cristina Griffith APRN - HYDRAULIC AND PLUMBING INSTALLER Work Phone: [facility] [employer] 10-30-2022 14:52-0400 Body weight 97.52 kg Cristina Griffith APRN - HYDRAULIC AND PLUMBING INSTALLER Work Phone: [facility] [employer] 10-30-2022 14:52-0400 Diastolic blood pressure 78 mm[Hg] Cristina Griffith APRN - HYDRAULIC AND PLUMBING INSTALLER Work Phone: [facility] [employer] 10-30-2022 14:52-0400 Heart rate 106 /min Cristina Griffith APRN - HYDRAULIC AND PLUMBING INSTALLER Work Phone: [facility] [employer] 10-30-2022 14:52-0400 Systolic blood pressure 104 mm[Hg] Cristina Griffith APRN - HYDRAULIC AND PLUMBING INSTALLER Work Phone: [facility] [employer] 07-15-2021 18:58-0500 Body temperature 98.96 [degF] JENNIE MI DO [facility] 07-15-2021 18:58-0500 Diastolic blood pressure 67 mm[Hg] JENNIE GUYT [facility] 07-15-2021 18:58-0500 Heart rate 62 /min JENNIE GUYT DO [facility] 07-15-2021 18:58-0500 Respiratory rate 18 /min JENNIE GUYT [employer] [facility] 07-15-2021 18:58-0500 Systolic blood pressure 106 mm[Hg] JENINE MI DO [facility] Encounters Encounter Date Encounter Type Care Provider Facility Start: 08-10-2023 Refill Cristina Griffith FELT STRIP FINISHER - HYDRAULIC AND PLUMBING INSTALLER Work Phone: [facility] Start: 01-29-2023 Refill Cristina Griffith FELT STRIP FINISHER - HYDRAULIC AND PLUMBING INSTALLER Work Phone: [facility] Start: 01-22-2023 Telephone encounter Cristina Sainz kuldip FELT STRIP FINISHER - HYDRAULIC AND PLUMBING INSTALLER Work Phone: [facility] Procedures Date Procedure Procedure Detail Performing Clinician Start: 03-10-2022 Adult depression scr eening assessment Olga Lidia ARSHAD-C Work Phone: Start: 02-09-2022 Adult depression scr eening assessment Olga Lidia ARSHAD-C Work Phone: Start: 12-01-2021 Adult depression scr eening assessment Olga Lidia ARSHAD-C Work Phone: Start: 11-14-2021 Us abdominal real ti me w/image limited Siomara Roque PA-C Work Phone: Start: 10-28-2021 Mri brain brain stem w/o contrast material Jovany Frank MD Work Phone: Start: 10-23-2021 C-reactive protein Chri yancy Hines DO Work Phone: Start: 10-23-2021 Comprehensive metabo lic panel Breanna Hines DO Work Phone: Start: 08-19-2020 Cholecystectomy JEFFREY MAYEN FELT STRIP FINISHER-CNM Plan of Treatment Date Care Activity Detail Author Start: 2042 RSV Immunization aged 60 or older (1 - 1-dose 60+ series) RSV Immunization aged 60 or older (1 - 1-dose 60+ series) [facility] Start: 10-27-2032 DTaP/Tdap/Td Vaccines (5 - Td or Tdap) DTaP/Tdap/Td Vaccines (5 - Td or Tdap) [facility] Start: 02-13-2032 Zoster Vaccines (1 of 2) Zoster Vaccines (1 of 2) [facility] Start: 01-03-2031 DTaP/Tdap/Td vaccine (4 - Td or Tdap) DTaP/Tdap/Td vaccine (4 - Td or Tdap) [facility] Start: 03-10-2023 Adult depression screening assessment DEPRESSION SCREENING [facility] Start: 02-26-2023 COVID-19 Vaccine () COVID-19 Vaccine () [facility] Start: 02-26-2023 Influenza vaccination [facility] Start: 02-09-2023 Adult depression screening assessment DEPRESSION SCREENING [facility] Start: 02-03-2023 End: 02-03-2023 Patient encounter procedure [facility] Start: 12-09-2022 CHET, Provider: Elmira Johnson, Status: Pen, Time: 1:00 PM CHET, Provider: Elmira Johnson, Status: Pen, Time: 1:00 PM [facility] Work Phone: Start: 12-01-2022 Adult depression screening assessment DEPRESSION SCREENING [facility] Start: 11-25-2022 HIREN, Provider: Cassius Malagon, Status: Pen, Time: 10:30 AM HIREN, Provider: Cassius Malagon, Status: Pen, Time: 10:30 AM [facility] Work Phone: Start: 10-23-2022 Creatinine measurement Creatinine [facility] Start: 10-23-2022 Hemoglobin A1c measurement Diabetes: Hemoglobin A1C [facility] Start: 10-23-2022 Potassium [Moles/volume] in Serum or Plasma Potassium [facility] Start: 06-17-2022 End: 06-17-2022 Patient encounter procedure 06/17/2022 Office Visit Endocrinology Bertha Yarbrough MD [address] [facility] [address] [place] [address] [facility] Start: 02-26-2022 Influenza vaccination [facility] Start: 2022 Mammography MAMMOGRAM [facility] Start: 2022 Screening for malignant neoplasm of breast Mammogram [facility] Start: 01-22-2022 Hemoglobin A1c measurement Diabetes: Hemoglobin A1C [facility] Start: 01-19-2022 End: 01-19-2022 Patient encounter procedure 01/19/2022 Office Visit Otolaryngology Mt Chavez MD [address] [place] [address] [facility] Start: 12-04-2021 End: 12-04-2021 Patient encounter procedure 12/04/2021 Office Visit Otolaryngology Mt Chavez MD [address] [place] [address] [facility] Start: 11-03-2021 End: 11-03-2021 Patient encounter procedure 11/03/2021 Office Visit Neurology Cristina Griffith, FELT STRIP FINISHER - HYDRAULIC AND PLUMBING INSTALLER [address] [place] [address] [facility] [place] Start: 10-28-2021 End: 10-28-2021 Patient encounter procedure 10/28/2021 Appointment MRI [facility] Start: 10-27-2021 End: 10-27-2021 Patient encounter procedure 10/27/2021 Office Visit General Surgery Clem Aleman MD [address] [place] [address] Gen Surg - [facility] Start: 06-28-2021 DEPRESSION ASSESSMENT DEPRESSION ASSESSMENT [facility] Start: 04-01-2021 COVID-19 Vaccine (3 - Booster for Pfizer series) COVID-19 Vaccine (3 - Booster for Pfizer series) [facility] Start: 12-25-2020 COVID-19 VACCINE (3 - Booster for Pfizer series) COVID-19 VACCINE (3 - Booster for Pfizer series) [facility] Start: 02-02-2020 Creatinine monitoring Creatinine monitoring [place], [place] Start: 02-02-2020 Potassium monitoring Potassium monitoring [place], [place] Start: 10-25-2019 End: 10-25-2019 Office Visit 10/25/2019 Office Visit Endocrinology Billie Adams MD [address] [place] [address] [phone] [facility] [place] Start: 05-17-2019 End: 05-17-2019 Office Visit 05/17/2019 Office Visit General Surgery Cat Poe MD [address] [place], [place] [id number] [facility]ess[facility] Start: 04-21-2019 End: 04-21-2019 Office Visit 04/21/2019 Office Visit Endocrinology Billie Adams MD [address] [place], [place] [address] [facility] [place] Start: 04-13-2019 End: 04-13-2019 Office Visit 04/13/2019 Office Visit Weight Management Rose Schaefer MD [address] [place], [place] [id number] [facility] Start: 04-10-2019 End: 04-10-2019 Appointment 04/10/2019 Appointment Radiology [facility] Start: 03-13-2019 End: 03-13-2019 Office Visit 03/13/2019 Office Visit Family Medicine Breanna Hines, DO [address] [place] [address] [phone] [facility] Start: 02-26-2019 Influenza vaccination Flu vaccine (#1) [place], [place] Start: 12-27-2015 Cervical cancer screen Cervical cancer screen [place], [place] Start: 02-13-2012 HPV TESTING HPV TESTING [facility] Start: 02-13-2012 Screening for malignant neoplasm of cervix [facility] Start: 2003 PAP TESTING PAP TESTING [facility] Start: 2003 Screening for malignant neoplasm of cervix Pap smear [facility] Start: 2001 DTaP/Tdap/Td vaccine (1 - Tdap) DTaP/Tdap/Td vaccine (1 - Tdap) [place], [place] Start: 2001 Urine microalbumin profile DTAP,TDAP,TD (1 - Tdap) [facility] Start: 2001 Urine screening for protein Diabetes: Urine Protein Screening [facility] Start: 02-13-2000 HEPATITIS C SCREENING HEPATITIS C SCREENING [facility] Start: 02-13-2000 Hepatitis C screening Hepatitis C Screening [facility] Start: 02-13-2000 HIV SCREENING HIV SCREENING [facility] Start: 1997 HIV screen HIV screen [place], [place] Start: 1997 HIV screening HIV screen [facility] Start: 1994 Adult depression screening assessment DEPRESSION SCREENING [facility] Start: 1994 Depression Monitoring Depression Monitoring [facility] Start: 1994 Depresssion Monitoring Depresssion Monitoring [facility] Start: 02-13-1992 Diabetic foot examination Diabetes: Foot Exam [facility] Start: 02-13-1992 Glaucoma screening Diabetes: Retinopathy Screening [facility] Start: 02-13-1992 Preventive dental service Diabetes: Dental Exam [facility] Start: 1983 MMR Vaccines (1 of 1 - Standard series) MMR Vaccines (1 of 1 - Standard series) [facility] Start: 1983 Varicella vaccination Varicella Vaccines (1 of 2 - 2-dose childhood series) [facility] Start: 1982 HEPATITIS B (1 of 3 - 3-dose series) HEPATITIS B (1 of 3 - 3-dose series) [facility] Start: 1982 Hepatitis B Vaccines (1 of 3 - 3-dose series) Hepatitis B Vaccines (1 of 3 - 3-dose series) [facility] Start: 1982 HIV screening HIV Screening [facility] Start: 1982 Lipid panel Lipid Panel [facility] Start: 1982 Thyroid stimulating hormone measurement TSH Level [facility] End: 12-16-2021 CT Sinus WO Contrast Limited [facility] Work Phone: Immunizations Immunization Date Immunization Notes Care Provider Fa cility 01-03-2021 tetanus toxoid, redu benji diphtheria toxoid, and acellular pertussis vaccine, adsorbed; Translations: [Boostrix (Tdap)] JEFFREY MAYEN FELT STRIP FINISHER-CNM [facility] 10-30-2020 Pfizer SARS-CoV-2 Vaccination Cristina Griffith FELT STRIP FINISHER - HYDRAULIC AND PLUMBING INSTALLER Work Phone: [facility] 10-09-2020 Pfizer SARS-CoV-2 Vaccination Cristina Griffith FELT STRIP FINISHER - HYDRAULIC AND PLUMBING INSTALLER Work Phone: [facility] 04-10-2020 tetanus and diphther ia toxoids, adsorbed, preservative free, for adult use (2 Lf of tetanus toxoid and 2 Lf of diphtheria toxoid) Breanna Hines DO Work Phone: [facility] Work Phone: 05-10-2019 influenza virus vaccine, unspecified formulation Breanna Hines DO Work Phone: [facility] 07-15-2016 diphtheria, tetanus toxoids and acellular pertussis vaccine, 5 pertussis antigens Breanna Hines DO Work Phone: [facility] Work Phone: 06-23-2016 influenza, injectabl e, quadrivalent, contains preservative Siomara Glasgow [place], [place] Payers Date Payer Category Payer Private Health Insurance [id number] 2022 Unknown [id number] 2021 Private Health Insurance [id number] 2021 Private Health Insurance SONNY BOSS [id number] 2021-Present [phone] RAFAT [id number] [place] [id number] Open Access [id number] 2021 Private Health Insurance [id number] 2021 Medicaid [place] [employer] [facility] MEDICAID [id number] 2021-Present [phone] [address] [place] [address] Medicaid [id number] 2021 Medicaid [id number] 2020 Medicaid [id number] 2018 Unknown [employer] M [employer] [address] xxxxxxxxxxxx 2018-Present [phone] [address] [place] [address] xxxxxxxxxxxx [id number] 1982 Unknown [id number] 1982 Unknown [id number] 1982 Unknown [id number] 1982 Unknown [id number] Private Health Insurance [id number] Unknown [id number] Unknown [employer] Social History Date Type Detail Facility Start: 07-02-2017 End: 02-23-2019 Tobacco [facility] Start: 02-23-2019 End: 10-30-2022 [facility] Start: 10-10-2018 History SDOH Physica l Activity [facility] Start: 10-10-2018 History SDOH Transpo rt Med 2 [facility] Start: 01-31-2015 End: 12-08-2017 [facility] Start: [facility] Start: 1982 Sex Assigned At Female A [facility] Start: 01-01-2015 End: 07-02-2017 Tobacco use and exposure Smokeless tobacco non-user [facility] Work Phone: Start: 10-08-2021 End: 10-30-2022 Alcohol intake Current drinker of alcohol (finding) [facility] Work Phone: Start: 10-08-2021 End: 10-30-2022 Alcohol intake [facility] Work Phone: Start: 09-28-2021 End: 10-30-2022 Exposure to SARS-CoV-2 (event) Not sure [facility] Start: 11-03-2021 End: 04-23-2022 Alcohol intake Ex-drinker (finding) [facility] Start: 10-26-2021 End: 11-05-2021 Exposure to SARS-CoV-2 (event) Unable to assess [facility] Work Phone: Start: 04-16-2022 Gender identity Identifies as female gender (finding) [facility] Start: 04-16-2022 Sexual orientation Bisexual (finding ) [facility] Goals Date Patient Goal Desired Activity /State Clinical Notes 04-10-2020 to 08-13-2023 Telephone Encounter - RUBI Sagastume CNP - 08/13/2023 8:54 AM ESTTelephone Encounter - RUBI Sagastume CNP - 08/13/2023 8:54 AM Dipika Del Real RN - 10/30/2022 2:30 PM EDT Note Date & Type Note Facility 08-13-2023 Telephone encounter Note Please schedule patient for follow up appointment for continued refills. Requested Prescriptions Signed Prescriptions Disp Refills erenumab (Aimovig) 140 MG/ML injection 1 mL 1 Sig: Inject 1 mL (140 mg) under the skin every 28 (twenty-eight) days. Authorizing Provider: CRISTINA GRIFFITH [facility] 08-13-2023 Miscellaneous Notes Please schedule patient for follow up appointment for continued refills. Requested Prescriptions Signed Prescriptions Disp Refills erenumab (Aimovig) 140 MG/ML injection 1 mL 1 Sig: Inject 1 mL (140 mg) under the skin every 28 (twenty-eight) days. Authorizing Provider: CRISTINA GRIFFITH documented in this encounter [facility] 02-01-2023 Telephone encounter Note Requested Prescriptions Signed Prescriptions Disp Refills Rimegepant Sulfate (Nurtec) 75 MG tablet dispersible 8 tablet 5 Sig: TAKE 75 MG BY MOUTH ONCE DAILY NEEDED (MIGRAINE) Authorizing Provider: CRISTINA GRIFFITH erenumab (Aimovig) 140 MG/ML injection 1 mL 5 Sig: INJECT 140 MG INTO THE SKIN EVERY 30 DAYS Authorizing Provider: CRISTINA GRIFFITH [facility] 02-01-2023 Miscellaneous Notes Requested Prescriptions Signed Prescriptions Disp Refills Rimegepant Sulfate (Nurtec) 75 MG tablet dispersible 8 tablet 5 Sig: TAKE 75 MG BY MOUTH ONCE DAILY NEEDED (MIGRAINE) Authorizing Provider: CRISTINA GRIFFITH erenumab (Aimovig) 140 MG/ML injection 1 mL 5 Sig: INJECT 140 MG INTO THE SKIN EVERY 30 DAYS Authorizing Provider: CRISTINA GRIFFITH documented in this encounter [facility] 01-22-2023 Telephone encounter Note Noted. [facility] 01-22-2023 Miscellaneous Notes Noted. Images from the [...] Authorization: Approved (medical benefit) PA reference #: [id number] Approval dates: 02/03/2023 - 02/04/2024 Number of Units Approved: 800 documented in this encounter [facility] 01-22-2023 Telephone encounter Note Images from the [...] Authorization: Approved (medical benefit) PA reference #: [id number] Approval dates: 02/03/2023 - 02/04/2024 Number of Units Approved: 800 [facility] 12-09-2022 Chief complaint Narrative - Reported An interactive audio and video telecommunication system which permits real time communications between the patient (at the originating site) and provider (at the distant site) was utilized to provide this telehealth service.Verbal consent was requested and obtained from ELINA LOWERY on this date, 12/09/2022 01:00 PM , for a telehealth visit.obesitynutrition follow-up pre-op [facility] Work Phone: 11-04-2022 Chief complaint Narrative - Reported An interactive audio and video telecommunication system which permits real time communications between the patient (at the originating site) and provider (at the distant site) was utilized to provide this telehealth service.Verbal consent was requested and obtained from ELINA LOWERY on this date, 11/04/2022 09:00 AM , for a telehealth visit.obesityinitial nutrition evaluation [facility] Work Phone: 11-04-2022 Note Chief Complaint An interactive audio and video telecommunication system which permits real time communications between the patient (at the originating site) and provider (at the distant site) was utilized to provide this telehealth service. Verbal consent was requested and obtained from ELINA SEBASTIÁN on this date, 11/04/2022 09:00 AM , [...] min. Smoking/Tobacco use: no Vitamins/Minerals supplements: 2 [place]'s MVI, B12 and iron Medications: see list Past diet attempts: Lenore LYNN low carb, had gastric bypass 14 years ago at [facility] Hours of sleep/night: 6-7 24 HOUR RECALL/DIET [...] This appt was conducted via phone d/t DEYANIRA 19 precautions. Nutrition assessment completed today. Patient [...] bypass surgery about 14 years ago at [facility] and starting gaining some weight back. Lost over 45 pounds since starting on Mounjaro 7 months ago. Goal for surgery is [...] per week. [employer] (more content not included)... [employer] 10-30-2022 Note DEPARTMENT OF NEUROL OGY BOTOX [...] 2. L Frontalis 10 units 3. R Services Mgr 10 units 4. L Services Mgr 10 units 5. R Temporalis 10 units [...] reviewed in detail. 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 L Frontalis 10 units 3. R Services Mgr 10 units 4. L Services Mgr 10 units 5. R Temporalis 10 units [...] Sagastume CNP 10/30/22 documented in this encounter [facility] 04-23-2022 Note HNO ID: [id number] Author: Olga Lidia Espinoza PA-C Service: ? Author Type: Physician Volleyball Player Type: Progress Notes Filed: 04/23/2022 4:57 PM Note Text: [facility] PROGRESS NOTE PATIENT: Elina Lowery MRD: [id number] DATE: April 23, 2022 IDENTIFYING INFORMATION: Elina is a 41 year old female with a history of anxiety, depression, PTSD and ADHD who presents for follow-up. Previous notes/chart have been reviewed. Virtual platform used: [employer]. This Visit is being conducted with the [...] has lead to more TMJ issues and MURHPY. Reports she was in so much pain [...] Substance Use H (more content not included)... [facility] 04-23-2022 Instructions Olga Lidia Espinoza PA-C - 04/23/2022 4:45 PM EDT [...] strategies for organizing home and work activities electrical engineering manager or mentoring to support better working relationships and improve on-the-job performance Family education and therapy What strategies can help an adult with ADHD succeed in the workplace? Some adults with ADHD have benefited from: Time-management training; Relaxation and stress management training; Occupational therapy to teach strategies for organizing home and work activities; and, electrical engineering manager or mentoring to support better working relationships [...] your son, imperfections and all. References National [place] of Mental Health. Can Adults Have ADHD? www.nimh.nih.gov Accessed 09/11/2011 Children and Adults with Attention Deficit/Hyperactivity Disorder. Coaching for Adults with ADHD www.yyff1eemf.org Accessed 09/11/2011 [place] [employer] Association. August 2011 Monitor on Psychology: Bringing life into focus www.apa.org Accessed 09/11/2011 Copyright 6119-7385 [facility]. All rights reserved This information is provided by the [facility] and is not intended to replace the medical advice of your doctor or health care provider. Please consult your health care provider for advice about a specific medical condition. For additional health information, please contact the Center for Consumer Health Information at the [facility] or toll-free extension [phone]. If you prefer, you may visit [email or web address] or [email or web address]. This document was last reviewed on: [...] of Mental Disorders (DSM-5), published by the [place] [employer]. How are anxiety disorders treated? [...] your doctor or pharmacist before taking any bgol-lbe-dqdtqaq medicines or herbal remedies. Many contain chemicals that can increase anxiety symptoms. Exercise daily and eat a healthy, balanced diet. Seek counseling and support after a traumatic or disturbing experience. References [place] Psychological Association. Anxiety Accessed 03/29/2014. [place] [employer]. DSM Accessed 03/29/2014. Copyright 0201-3211 [facility]. All rights reserved This information is provided by the [facility] and is not intended to replace the medical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 Relationship Specialty Start Date End Date Breanna Hines DO [address] [place] [id number] PCP - General 12/19/14 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 [employer] Relationship Specialty Start Date End Date Breanna Hines [facility] [place] [id number] PCP - General Internal Medicine 07/02/17 Supervisor [employer] Relationship Specialty Start Date End Date Breanna Hines [facility] [place] [id number] PCP - General Internal Medicine 07/02/17 Supervisor [employer] Relationship Specialty Start Date [place] [address] PCP - General Internal Medicine 07/02/17 Supervisor [employer] Relationship Specialty Start Date End Date Breanna [facility]WOR[facility] [place] [address] PCP - General Internal Medicine 07/02/17 Supervisor [employer] Relationship Specialty Start Date End Date Breanna Hines DO [address] [place] [address] PCP - General 12/19/14 Supervisor [employer] Relationship Specialty Start Date End Date Sam Hinesleonora Francis [address] [facility] [place] [address] PCP - General Internal Medicine 07/02/17 Supervisor [employer] Relationship Specialty Start Date End Date Sam Hinesina Penny [facility] [place] [address] PCP - General Internal Medicine 07/02/17 Supervisor [employer] Relationship Specialty Start Date End Date Breanna [facility] [place] [address] PCP - General Internal Medicine 07/02/17 Supervisor [employer] Relationship Specialty Start Date End Date Breanna Hines [address] [facility] [place] [address] PCP - General Internal Medicine 07/02/17 Supervisor [employer] Relationship Specialty Start Date End Date Breanna HinesWORTH [facility] [place] [address] PCP - General Internal Medicine 07/02/17 Supervisor [employer] Relationship Specialty Start Date End Date Thomas Lamb MD [address] [phone] PCP - General Family Medicine 07/22/22 Supervisor [employer] Relationship Specialty Start Date End Date Thomas Lamb MD [address] [place] [phone] PCP - General Family Medicine 07/22/22 Supervisor [employer] Relationship Specialty Start Date End Date Thomas Lamb MD [address] [place] [address] PCP - General Family Medicine 07/22/22 Supervisor [employer] Relationship Specialty Start Date End Date Thomas Lamb MD [address] [place] [address] PCP - General Family Medicine 07/22/22 Source Comments (unrecognize d section and content) In the event this informatio n is protected by the Federal Confidentiality of Alcohol and Drug Abuse Patient Records regulations: The Federal rules restrict any use of the information to criminally investigate or prosecute any alcohol or drug abuse patient.[facility] the event this information is protected by the Federal Confidentiality of Alcohol and Drug Abuse Patient Records regulations: The Federal rules restrict any use of the information to criminally investigate or prosecute any alcohol or drug abuse patient.[facility] Hospital[facility] the event this information is protected by the Federal Confidentiality of Alcohol and Drug Abuse Patient Records regulations: The Federal rules restrict any use of the information to criminally investigate or prosecute any alcohol or drug abuse patient.[facility] Hospital[facility] the event this information is protected by the Federal Confidentiality of Alcohol and Drug Abuse Patient Records regulations: The Federal rules restrict any use of the information to criminally investigate or prosecute any alcohol or drug abuse patient.[facility] Hospital[facility] the event this information is protected by the Federal Confidentiality of Alcohol and Drug Abuse Patient Records regulations: The Federal rules restrict any use of the information to criminally investigate or prosecute any alcohol or drug abuse patient.[facility] Hospital[facility] the event this information is protected by the Federal Confidentiality of Alcohol and Drug Abuse Patient Records regulations: The Federal rules restrict any use of the information to criminally investigate or prosecute any alcohol or drug abuse patient.[facility] HospitalIn the event this information is protected by the Federal Confidentiality of Alcohol and Drug Abuse Patient Records regulations: The Federal rules restrict any use of the information to criminally investigate or prosecute any alcohol or drug abuse patient.[facility] HospitalIn the event this information is protected by the Federal Confidentiality of Alcohol and Drug Abuse Patient Records regulations: The Federal rules restrict any use of the information to criminally investigate or prosecute any alcohol or drug abuse patient.[facility] HospitalIn the event this information is protected by the Federal Confidentiality of Alcohol and Drug Abuse Patient Records regulations: The Federal rules restrict any use of the information to criminally investigate or prosecute any alcohol or drug abuse patient.[facility] HospitalIn the event this information is protected by the Federal Confidentiality of Alcohol and Drug Abuse Patient Records regulations: The Federal rules restrict any use of the information to criminally investigate or prosecute any alcohol or drug abuse patient.[facility] HospitalIn the event this information is protected by the Federal Confidentiality of Alcohol and Drug Abuse Patient Records regulations: The Federal rules restrict any use of the information to criminally investigate or prosecute any alcohol or drug abuse patient.[facility] HospitalIn the event this information is protected by the Federal Confidentiality of Alcohol and Drug Abuse Patient Records regulations: The Federal rules restrict any use of the information to criminally investigate or prosecute any alcohol or drug abuse patient.[facility] HospitalIn the event this information is protected by the Federal Confidentiality of Alcohol and Drug Abuse Patient Records regulations: The Federal rules restrict any use of the information to criminally investigate or prosecute any alcohol or drug abuse patient.[facility] HospitalIn the event this information is protected by the Federal Confidentiality of Alcohol and Drug Abuse Patient Records regulations: The Federal rules restrict any use of the information to criminally investigate or prosecute any alcohol or drug abuse patient.[facility] HospitalIn the event this information is protected by the Federal Confidentiality of Alcohol and Drug Abuse Patient Records regulations: The Federal rules restrict any use of the information to criminally investigate or prosecute any alcohol or drug abuse patient.[facility] HospitalIn the event this information is protected by the Federal Confidentiality of Alcohol and Drug Abuse Patient Records regulations: The Federal rules restrict any use of the information to criminally investigate or prosecute any alcohol or drug abuse patient.[facility] Reason for Visit (unrecogniz ed section and content) Reason Comments New Patient Evaluation Specialty Diagnoses / Procedures Referred By Baldemar t Referred To Contact Psychiatry / PSYCHIATRY Diagnoses New patient - Depression / mychart Procedures VIDEO PSYC/PSYL NEW Self Olga Lidia Espinoza PA-C [address] [address] Referral ID Status Reason Start Date Expiration Date V isits Requested Visits Authorized [id number] Authorized 12/01/2021 06/27/2022 99 99 Reason Comments Returning Patient's Call PT LVM requesti ng to [facility] appt. Reason Comments Returning Patient's Call PT LVM rtn miss ed callback, request to [facility] appt. Called back PT no answer LVM Reason Comments Patient Update Reason Comments No Show Reason Comments Follow Up Specialty Diagnoses / Procedures Referred By Contac t Referred To Contact Psychiatry / PSYCHIATRY Diagnoses New patient - Depression / mychart Procedures VIDEO PSYC/PSYL MD Alexis Perez Shannon, PA-C [address] [facility] [address] [place] [address] Reason Comments Procedure Botox - migraine Specialty Diagnoses / Procedures Referred By Contac t Referred To Contact Diagnoses Intractable chronic migraine without aura and without status migrainosus Cristina Griffith, FELT STRIP FINISHER - HYDRAULIC AND PLUMBING INSTALLER [address] [place] [address] Referral ID Status Reason Start Date Expiration Date V isits Requested Visits Authorized [id number] Pending Review 10/30/2022 04/28/2023 1 1 Reason [...] BE BASED ON THE PRIMARY CLINICAL RECORDS. [employer] provides no warranty or guarantee of the accuracy or completeness of information in this document.
[2023-08-16 16:19] LABS: Progesterone Level 0.58 ng/mL (See Comment)
[2023-08-16 16:24] LABS: Estradiol 263.5 pg/mL; Follicle Stimulating Hormone 6.7 mIU/mL; Luteinizing Hormone 26.9 mIU/mL; T4 Free Direct 0.81 ng/dL (0.76-1.46); Thyroid Stim Hormone (TSH) 4.23 uIU/mL (0.358-3.74)
== END | disposition home or self-care (01) ==
PROVIDERS: Internal Medicine Endocrinology, Diabetes & Metabolism; PCP Family Medicine
DX: E28.2 Polycystic ovarian syndrome (principal); E11.9 Type 2 diabetes mellitus without complications; E03.8 Other specified hypothyroidism; E06.3 Autoimmune thyroiditis
CPT/HCPCS: 36415; 82670; 83001; 83002; 84144; 84439; 84443

== ENCOUNTER → 2023-11-03 | Outpatient (CLI) | payer OTHER, SELFPAY ==
[2023-11-03 17:32] LABS: Absolute Lymphocyte Count 2.52 X10^3/uL (0.83-4.51); Absolute Neutrophil Count 3.3 X10^3/uL (2.0-7.7); Basophil# 0.03 X10^3/uL; Basophil% 0.5 % (0-1); Eosinophil# 0.12 X10^3/uL; Eosinophils% 1.8 % (0-5); Hematocrit 38.8 % (37-47); Hemoglobin 12.5 g/dL (12.0-15.0); Lymphocyte # 2.52 X10^3/ul (0.83-4.51); Lymphocyte % 38.7 % (19-41); Mean Corp Hgb Conc 32.2 g/dL (32-36); Mean Corpuscular Hgb 30.8 pg (27.0-32.0); Mean Corpuscular Volume 95.6 fL (81-99); Monocyte# 0.53 X10^3/uL; Monocyte% 8.1 % (0-10); NRBC Flagged by Analyzer 0 % (0-5); Neutrophil # 3.28 X10^3/uL (2.7-7.7); Neutrophil % 50.4 % (47-70); Platelet Count 373 K/mm3 (150-450); RBC Distribution Width CV 12.8 % (11.6-14.6); RBC Distribution Width SD 44.8 fl (35.1-43.9); Red Blood Count 4.06 M/mm3 (4.2-5.4); White Blood Count 6.5 K/mm3 (4.4-11.0)
[2023-11-03 17:43] LABS: Erythrocyte Sedimentation Rate 6 mm/hr (0-30)
[2023-11-03 17:48] LABS: Vitamin B12 474 pg/mL (211-911)
[2023-11-03 18:12] LABS: CRP < 2.90 mg/L (0.0-3.0); Ferritin 6 ng/mL (8-252); Rheumatoid Factor < 10.0 IU/mL (<15)
== END | disposition home or self-care (01) ==
LOC: MFPLAB 16:32
PROVIDERS: Internal Medicine Endocrinology, Diabetes & Metabolism; PCP Family Medicine; Visit Provider Family Medicine
DX: R21 Rash and other nonspecific skin eruption (principal); R53.83 Other fatigue; R53.81 Other malaise; M25.50 Pain in unspecified joint
CPT/HCPCS: 82607; 82728; 85025; 85652; 86038; 86140; 86431

== ENCOUNTER → 2024-03-10 | Outpatient (CLI) | payer OTHER, SELFPAY ==
--- NOTE | 2024-03-10 14:44 | RAD_ITS ---
STUDY: X-RAY - PELVIS AND LEFT HIP REASON FOR EXAM: Female, 44 years old. HIP PAIN TECHNIQUE: 3 views of the pelvis and hip. COMPARISON: None. FINDINGS: There is a non-specific bowel gas pattern. Normal visualized soft tissue structures. Normal bilateral iliac wings, sacroiliac joints and visualized sacrum. Normal bilateral superior and inferior pubic rami. Normal pubic symphysis. Normal bilateral ischial tuberosities. Normal visualized femoral head. Normal acetabulum. Normal hip joint. Small geode noted within the femoral neck. RAD/HIP, UNI W/ Pelvis 2-3 Views IMPRESSION: No evidence for acute fracture or dislocation. Electronically Signed: Dustin Lr MD at 17:47 EDT ,
== END | disposition home or self-care (01) ==
LOC: MTRAD 14:42
PROVIDERS: PCP Family Medicine; Referring Provider Family Medicine; Visit Provider Family Medicine
DX: M25.552 Pain in left hip (principal)
CPT/HCPCS: 73502

== ENCOUNTER → 2024-05-06 | Outpatient (CLI) | payer OTHER, SELFPAY ==
[2024-05-06 09:41] LABS: Absolute Lymphocyte Count 1.62 X10^3/uL (0.83-4.51); Absolute Neutrophil Count 2.4 X10^3/uL (2.0-7.7); Eosinophil# 0.06 X10^3/uL; Eosinophils% 1.3 % (0-5); Hematocrit 43.4 % (37-47); Lymphocyte # 1.62 X10^3/ul (0.83-4.51); Lymphocyte % 36.1 % (19-41); Mean Corp Hgb Conc 32.3 g/dL (32-36); Mean Corpuscular Hgb 30.4 pg (27.0-32.0); Mean Corpuscular Volume 94.1 fL (81-99); Monocyte# 0.45 X10^3/uL; NRBC Flagged by Analyzer 0 % (0-5); Neutrophil # 2.35 X10^3/uL (2.7-7.7); Neutrophil % 52.4 % (47-70); Platelet Count 288 K/mm3 (150-450); RBC Distribution Width CV 12.5 % (11.6-14.6); RBC Distribution Width SD 42.9 fl (35.1-43.9); Red Blood Count 4.61 M/mm3 (4.2-5.4); White Blood Count 4.5 K/mm3 (4.4-11.0)
[2024-05-06 10:09] LABS: AST(SGOT) 21 U/L (15-37); Alanine Aminotransfer ALT/SGPT 25 U/L (13-56); Albumin, Serum 3.5 g/dL (3.2-5.0); Alkaline Phosphatase 59 U/L (45-117); Anion Gap 2 (5-15); BUN 8 mg/dL (7-18); BUN/Creat Ratio 12.4 RATIO (10-20); Calcium,Total 9.2 mg/dL (8.5-10.1); Chloride 108 mmol/L (98-107); Cholesterol 159 mg/dL (200); Creatinine, Serum 0.64 mg/dL (0.55-1.02); EST Glomerular Filtration Rate 107 mL/min (>60); Est Glom Filt Rate - Afr Amer 130 mL/min (>60); Ferritin 7 ng/mL (8-252); Globulin 3.5 g/dL (2.2-4.2); Glucose 66 mg/dL (74-106); High Density Lipoprotein 47 mg/dL; Potassium 4.5 mmol/L (3.5-5.1); Sodium Level 140 mmol/L (136-145); T4 Free Direct 1.21 ng/dL (0.76-1.46); Triglycerides 56 mg/dL; Very Low Density Lipoprotein 11 mg/dL (5-40)
[2024-05-06 10:11] LABS: Free T3 2.6 pg/mL (2.18-3.98); T4 Free Direct 1.22 ng/dL (0.76-1.46)
[2024-05-06 10:16] LABS: Microalbumin,Random Urine < 5.0 mg/L (NO RANGE EST.)
[2024-05-08 08:21] LABS: Vitamin D,25 Hydroxy 33.7 ng/mL
== END | disposition home or self-care (01) ==
LOC: LAB 08:37
PROVIDERS: PCP Family Medicine; Referring Provider Internal Medicine Endocrinology, Diabetes & Metabolism; Visit Provider Internal Medicine Endocrinology, Diabetes & Metabolism
DX: E03.9 Hypothyroidism, unspecified (principal); E11.9 Type 2 diabetes mellitus without complications; E61.1 Iron deficiency; K90.89 Other intestinal malabsorption; Z79.899 Other long term (current) drug therapy
CPT/HCPCS: 36415; 80053; 80061; 82043; 82306; 82570; 82728; 84439; 84443; 84481; 85025

== ENCOUNTER → 2024-06-01 | Outpatient (CLI) | payer OTHER, SELFPAY ==
--- NOTE | 2024-06-01 16:36 | BI_ITS ---
MAMMOGRAPHY - BILATERAL SCREENING REASON FOR EXAM: Female, 44 years old. Routine annual screening examination. PERTINENT HISTORY: Non-contributory. TECHNIQUE: Digital bilateral breast klaudia (3D mammographic acquisition) in the CC and MLO projections. 2-D mediolateral oblique (MLO) and craniocaudad (CC) views of both breasts were obtained. CAD: Full Field Digital Mammography with Computer Added Detection was performed. COMPARISON: Comparison is made with prior outside examination dated August 09, 2018. FINDINGS: Breast Composition: There are scattered areas of fibroglandular density. There are no dominant masses or suspicious calcifications. Stable small benign-appearing bilateral axillary lymph nodes. No other significant abnormalities are identified. There has been no significant change since the prior study. BI/SCRN MAMM (CAD)W/KLAUDIA BILAT IMPRESSION: Stable bilateral screening mammogram. Yearly follow-up mammogram recommended. (A) ASSESSMENT CATEGORY: BIRADS Category 2: Benign. A letter regarding these results will be sent to the patient by the facility within 30 days. Approximately 10% of breast cancers are not detected by mammography. A normal mammogram should not delay biopsy of a clinically suspicious abnormality. [id number] Electronically Signed: Marvin Beasley MD at 8:40 EST ,
== END | disposition home or self-care (01) ==
LOC: OPBI 09-14 15:57
PROVIDERS: PCP Family Medicine; Referring Provider Family Medicine; Visit Provider Family Medicine
DX: Z12.31 Encounter for screening mammogram for malignant neoplasm of breast (principal)
CPT/HCPCS: 77063; 77067

== ENCOUNTER → 2024-07-28 | Outpatient (CLI) | payer BC, SELFPAY ==
--- NOTE | 2024-07-28 16:24 | RAD_ITS ---
PROCEDURE: SHOULDER MIN 2 VIEWS REASON FOR EXAM: Pain. TECHNIQUE: Four view left shoulder. COMPARISON: None. 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 Satisfactory alignment is seen. The left glenohumeral joint is unremarkable. No fracture site is identified. Reading Location: [id number]
== END | disposition home or self-care (01) ==
PROVIDERS: PCP Family Medicine; Referring Provider Family Medicine; Visit Provider Family Medicine
DX: M25.512 Pain in left shoulder (principal)
CPT/HCPCS: 73030

== ENCOUNTER → 2024-09-27 | Outpatient (CLI) | payer BC, SELFPAY ==
[2024-09-27 13:29] LABS: ALB/GLOB Ratio 1.3 RATIO (0.9-2.4); AST(SGOT) 23 U/L (<=31); Alanine Aminotransfer ALT/SGPT 25 U/L (<=34); Albumin, Serum 4.1 g/dL (3.5-5.0); Alkaline Phosphatase 67 U/L (35-104); Anion Gap 7 (5-15); BUN 8 mg/dL (4-19); BUN/Creat Ratio 12.8 RATIO (10-20); Calcium,Total 9.7 mg/dL (7.6-11.0); Carbon Dioxide 26.9 mmol/L (21.0-32.0); Chloride 105 mmol/L (98-108); Creatinine, Serum 0.66 mg/dL (0.70-1.20); EST Glomerular Filtration Rate 112 (>60); Globulin 3.1 g/dL (2.2-4.2); Glucose 84 mg/dL (70-99); Potassium 5.6 mmol/L (3.3-5.1); Protein, Total 7.2 g/dL (5.9-8.4); Sodium Level 139 mmol/L (133-145); Total Bilirubin 0.33 mg/dL (0.00-1.30)
[2024-09-27 18:00] LABS: Hemoglobin A1c 5.1 % (<=5.6)
== END | disposition home or self-care (01) ==
LOC: MFPLAB 10:53
PROVIDERS: PCP Family Medicine; Referring Provider Internal Medicine Endocrinology, Diabetes & Metabolism; Visit Provider Internal Medicine Endocrinology, Diabetes & Metabolism
DX: E11.9 Type 2 diabetes mellitus without complications (principal)
CPT/HCPCS: 36415; 80053; 83036; 84443

== ENCOUNTER 2024-10-25 17:00 | Outpatient (RCR) | payer BC, SELFPAY ==
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
--- NOTE | 2024-08-24 08:03 | HP.OTDCNRP_ITS ---
Patient Information Patient Information: MONA LOWERY was seen in my office for initial evaluation on 08/10/24. The following Plan of Care was established for this patient: POC Established Initial Frequency: 1-2x /Week Initial Duration: 4 Weeks Plan: discharge Anticipated Interventions Anticipated Interventions: Strengthening, Sensory Retraining, Modalities, Orth oses, Joint Protection/Energy Conservation, Education re Diagnosis and Home Program Last Seen Last Seen: This patient was last seen in our office 08/23/24. Pertinent comments regarding their Occupational therapy will appear below: This 44 year old female referred to OT with L wrist and hand pain. Pt seen for eval plus one additional visit for completion of US, soft tissue mobilization ed and handouts for radial nerve glides as well as forearm extensor stretch and shoulder stretch to aid in decreased pain increased functional use of LUE. pt with completion of PT eval yesterday due to pain possibly stemming from shoulder region. Plan for pt to continue to address pain with PT and discharge OT services at this time. pt in agreeance. At this point I will be discontinuing this patient from occupational therapy. I would be happy to see this patient again in the future if found appropriate by the physician. Thank you! Nedra Saravia
--- NOTE | 2024-08-24 08:03 | HP.OTDCSUM ---
Discharge Summary D/C Summary: It has been my pleasure to treat MONA LOWERY under orders from Dr. Thomas Mckinley MD, for the diagnosis of L hand and wrist pain for a total of 2 visit(s). Please see the following information for a summary of their discharge status. Overall Improvement % Improvement: 0 Goals Patient Goals: Regain Strength, Decrease Pain, Decrease Swelling/Stiffness, Use Hand/Wrist/Arm Normally Again, Sleep Better, Decrease Tingling/Numbness, Increase ROM, Resume Former Household Responsibilities (Cooking,Cleaning,Yard, etc.) and Resume Hobbies Goal:Rock Climbing Team Member/Pinch strength at least 75% of unaffected hand: Yes Goal Progress: not met Goal:No pain with affected hand use: Yes Goal Progress: not met Goal:Full use of affected hand in daily activities including work: Yes Goal Progress: not met Goal:Improvement in sensation documented by [place] monofiliaments: Yes Goal Progress: not met Other Goal: pt will improve quick dash score by 15 points or more in order to improve functional use of LUE not met pt will verbalize/ demonstrate 100% accuracy in proper joint positioning and protection for decreased LUE pain as well as numbness and tingling not met Plan Plan: discharge D/C Information Discharge Comments: This 44 year old female referred to OT with L wrist and hand pain. Pt seen for eval plus one additional visit for completion of US, soft tissue mobilization ed and handouts for radial nerve glides as well as forearm extensor stretch and shoulder stretch to aid in decreased pain increased functional use of LUE. pt with completion of PT eval yesterday due to pain possibly stemming from shoulder region. Plan for pt to continue to address pain with PT and discharge OT services at this time. pt in agreeance. d/c sentence: If there are questions or concerns regarding this patient's occupational therapy, please fell free to call me at [phone]. Thank you for the referral of this patient. Sincerely, Nedra Saravia
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
--- NOTE | 2024-12-06 15:41 | HP.PT.NRP ---
Patient Information Patient Information: MONA LOWERY was seen in my office for initial evaluation on 08/23/24. The following Plan of Care was established for this patient: POC Established Initial Frequency: 2x /Week Initial Duration: 4-6 Weeks Anticipated Interventions Patient/Client Instruction: Educate patient on: Condition and Plan of Care For the Purpose of:: To decrease pain, To increase ROM, To improve muscle performance and motor function, To increase tolerance to activity/condition/position, To improve ability of physical actions for home/community/work/leisure and To increase flexibility/ROM Therapeutic Exercise to Include: Strength training, Postural training, Flexibilty training, Passive ROM and Active ROM For the Purpose of:: To decrease pain, To increase ROM, To improve nutrient delivery to tissue, To improve muscle performance and motor function, To increase tolerance to activity/condition/position and To improve ability of physical actions for home/community/work/leisure Manual Therapy Techniques to Include: Trigger point massage, Mobilization, Passive ROM and Soft tissue mobilization For the Purpose of:: To decrease pain, To increase ROM, To improve nutrient delivery to tissue, To improve muscle performance and motor function and To increase tolerance to activity/condition/position TENS: Yes Thermo therapy (hot pack): Yes Ultrasound (thermal/non thermal): Yes For the Purpose of:: To decrease pain, To increase ROM, To improve nutrient delivery to tissue and To increase oxygenation perfusion Last Seen Last Seen: This patient was last seen in our office 10/25/24. Pertinent comments regarding their Physical therapy will appear below: Pt seen 8 visits of her 10 visit POC but did not attend the last two visits. at this point, it has been over 30 days and I will discontinue her from my care. At this point I will be discontinuing this patient from physical therapy. I would be happy to see this patient again in the future if found appropriate by the physician. Thank you! Santo Holm, DPT, OCS, CSCS Balance/Gait/Functional tests Balance/Special Test Scores Quick DASH Score: 36.3623
== END 2024-10-25 19:00 | disposition home or self-care (01) ==
LOC: PT 17:00
PROVIDERS: PCP Family Medicine; Referring Provider Family Medicine; Visit Provider Family Medicine
DX: M25.512 Pain in left shoulder (principal); M79.642 Pain in left hand; M25.532 Pain in left wrist
CPT/HCPCS: 97014; 97035; 97110; 97140; 97161; 97166; 97530; G0283

== ENCOUNTER → 2025-01-23 | Outpatient (CLI) | payer BC, SELFPAY ==
--- NOTE | 2025-01-23 17:31 | MRI_ITS ---
PROCEDURE: UPPER EXT JOINT ONLY(ROUTINE) 01/23/2025 REASON FOR EXAM: LEFT SHOULDER PAIN TECHNIQUE: T1, T2, PD, UPPER EXT JOINT ONLY(left) multiplanar and multisequence images were obtained without IV contrast administration. COMPARISON: COMPARISON: July 28, 2024 FINDINGS: Bone Marrow: There is no bony contusion or occult fracture. Subcortical cyst formation is noted deep to the infraspinatus insertion. AC joint: There is mild AC joint hypertrophy without evidence of separation. There is a type 2 acromion. Rotator cuff: There is no muscular atrophy. There is moderate distal infraspinatus and subscapularis tendinopathy without full-thickness tear or retraction. The supraspinatus and teres minor appear intact. Biceps: Biceps tendon is present in the biceps tendon groove, with intact anchors. Labrum: The labrum appears intact. Effusion: There is no significant joint effusion. There is no significant abnormal bursal fluid Cartilage: There is no focal chondromalacia. MRI/Upper Ext Joint Only(Routine) IMPRESSION: There is mild AC joint hypertrophy without evidence of separation. There is moderate distal infraspinatus and subscapularis tendinopathy without f ull-thickness tear or retraction. Reading Location: [facility]
== END | disposition home or self-care (01) ==
LOC: MRI 17:26
PROVIDERS: PCP Family Medicine; Referring Provider Family Medicine; Visit Provider Family Medicine
DX: M25.512 Pain in left shoulder (principal)
CPT/HCPCS: 73221

== ENCOUNTER → 2025-02-23 | Outpatient (CLI) | payer BC, SELFPAY ==
[2025-02-23 11:09] LABS: Anion Gap 8 (5-15); BUN 9 mg/dL (4-19); BUN/Creat Ratio 16.1 RATIO (10-20); Calcium,Total 9.4 mg/dL (7.6-11.0); Carbon Dioxide 25.8 mmol/L (21.0-32.0); Chloride 105 mmol/L (98-108); Glucose 78 mg/dL (70-99); Potassium 4.5 mmol/L (3.3-5.1)
[2025-02-23 11:36] LABS: Cholesterol 138 mg/dL (<=200); Low Density Lipoprotein Calc. 76 mg/dL; Triglycerides 61 mg/dL; Very Low Density Lipoprotein 12 mg/dL (5-40); cholesterol:hdl ratio screen 2.79
[2025-02-27 15:07] LABS: ANTINUCLEAR ANTIBODIES DIRECT Negative (Negative); SJOGREN'S Anti-SS-A test < 0.2 AI (0.0-0.9); SJOGREN'S Anti-SS-B test < 0.2 AI (0.0-0.9)
== END | disposition home or self-care (01) ==
LOC: MFPLAB 08:38
PROVIDERS: PCP Family Medicine; Referring Provider Family Medicine; Visit Provider Family Medicine
DX: E03.9 Hypothyroidism, unspecified (principal); E11.9 Type 2 diabetes mellitus without complications; H04.123 Dry eye syndrome of bilateral lacrimal glands
CPT/HCPCS: 36415; 80048; 80061; 84443; 86038; 86235; 86431

== ENCOUNTER 2025-04-13 15:29 | Outpatient (CLI) | payer BC, SELFPAY ==
--- NOTE | 2025-04-13 15:31 | RAD_ITS ---
PROCEDURE: RAD/Knee 4 or More Views
== END 2025-04-13 23:59 | disposition home or self-care (01) ==
LOC: MTRAD 15:30
PROVIDERS: PCP Family Medicine; Referring Provider Family Medicine; Visit Provider Family Medicine
DX: M23.92 Unspecified internal derangement of left knee (principal)
CPT/HCPCS: 73564